=== PATIENT | female | born 1940 | race Caucasian/White ===

== ENCOUNTER 2021-04-22 01:32 | Inpatient (IN) | payer MEDICARE, BC, OTHER, SELFPAY ==
[2021-04-22] VITALS (18 sets, daily range): BP systolic 95–115; BP diastolic 47–75; PULSE 71–102; RESP 16–24; TEMP 35.5–36.4; O2SAT 92–100; BMI 21.7
--- NOTE | ~2021-04-22 | CT_ITS ---
EXAMINATION: CT abdomen pelvis w con DATE: 04/22/2021 02:28 INDICATION: Abdominal pain TECHNIQUE: Computed tomography (CT) of the abdomen and pelvis was performed with 100 cc Omnipaque 350 intravenous contrast. The dose-length product was 707.75 mGy-cm. Automated exposure control and iter ative reconstruction technique were employed. COMPARISON: None. FINDINGS: There is dependent atelectasis. Coarse reticular opacities lower lungs which may also refle ct atelectasis or chronic interstitial lung disease. Cardiomegaly. No significant pleural or pericard ial effusion. Moderate diffuse atherosclerosis. No aneurysm. Thickening of the gastric antrum and duo denum. Moderate free air throughout the abdomen and pelvis. Findings suspicious for ulcer, exact site not identified. Small amount of free fluid in the abdomen and pelvis. Uterus is surgically absent. A ppendix not visualized. Nonobstructive bowel gas pattern. No acute osseous abnormality. Moderate-yaw re lumbar spondylosis. Status post cholecystectomy with expected prominence of the bile ducts. The spleen, pancreas, adrenal glands and kidneys are unremarkable. IMPRESSION: 1. Moderate free intraperitoneal air, suspicious for perforated viscus, possibly perforated duodenal or gastric ulcer. There is marked thickening of the gastric antrum and duodenum. Reviewed, dictated and finalized at location D. IMPRESSION: 1. Moderate free intraperitoneal air, suspicious for perforated viscus, possibl y perforated duodenal or gastric ulcer. There is marked thickening of the gastr ic antrum and duodenum.
--- NOTE | ~2021-04-22 | XR_ITS ---
EXAMINATION: XR abdomen NG/feed tube insert INDICATION: Nasogastric tube insertion TECHNIQUE: Portable AP KUB-NG at 1357 hours COMPARISON: CT from today FINDINGS: The nasogastric tube is in the stomach. There are midline skin rosendo. A surgical drain co ils over the midepigastrium. Cholecystectomy clips are noted. There are patchy airspace opacities of the lungs. IMPRESSION: 1. Nasogastric tube in the stomach. Interval surgical change. Reviewed, dictated and finalized at location A.
--- NOTE | ~2021-04-22 | XR_ITS ---
EXAMINATION: XR abdomen NG/feed tube insert DATE: 04/24/2021 01:53 INDICATION: New nasogastric tube placement. TECHNIQUE: A supine view of the abdomen and lower chest was obtained for evaluation of feeding tube placement. COMPARISON: 04/23/2021 FINDINGS: Nasogastric tube tip in proximal side port in the body of the stomach. Surgical drain position in the right lower quadrant and coiled in the central abdomen. Cholecystectomy clips in right upper quadran t. Midline skin rosendo. Relative paucity of bowel gas in the visualized abdomen. Opacities at the bi lateral lung bases with blunting at the costophrenic angles consistent with small bilateral pleural e ffusions and associated atelectasis and/or pneumonia. Cardiomegaly. IMPRESSION: 1. Nasogastric tube in the stomach with nonspecific relative paucity of bowel gas in the abdomen. 2. Small bilateral pleural effusions with mild bibasilar atelectasis and/or pneumonia. 3. Cardiomegaly. Reviewed, dictated and finalized at location A. IMPRESSION: 1. Nasogastric tube in the stomach with nonspecific relative paucity of bowel g as in the abdomen. 2. Small bilateral pleural effusions with mild bibasilar atelectasis and/or pne umonia. 3. Cardiomegaly.
--- NOTE | ~2021-04-22 | XR_ITS ---
EXAMINATION: XR UGI water soluble wo kub DATE: 04/24/2021 12:09 INDICATION: Patient status post perforated gastric ulcer repair TECHNIQUE: Water-soluble contrast was infused through the nasogastric tube.. Conventional supine abdo men radiographs and fluoroscopy of the stomach and proximal small bowel were performed. Fluoroscopy e xposure time was 0.9 minutes. The DAP for this procedure was 8.50 Gycm2. COMPARISON: CT from 04/22/2021 FINDINGS: There is no hiatal hernia. There was a small amount of gastroesophageal reflux around the n asogastric tube. A surgical drain is present which coils along the lesser curvature of the stomach. N o contrast extravasation is identified. The stomach and proximal small bowel show normal folding hina erns. Cholecystectomy clips are noted. IMPRESSION: 1. Postsurgical changes without evidence of contrast extravasation. Reviewed, dictated and finalized at location A.
--- NOTE | 2021-04-22 01:49 | ECG_ITS ---
Measurements Intervals [place] Rate: 67 P: 37 AR: 180 QRS: 54 QRSD: 82 T: 49 QT: 407 QTc: 431 Interpretive Statements SINUS RHYTHM BASELINE WANDER- V1, V4-V6 NORMAL ECG Electronically Signed On 04-22-2021 6:28:59 CDT by Mariano Wilson D.O.
--- NOTE | 2021-04-22 02:00 | ED.ABDPAIN ---
HPI - Abdominal Pain General Stated Complaint: abd pain/vomiting Time Seen by Provider: 04/22/21 01:52 Source: patient Mode of arrival: ambulatory Limitations: no limitations History of Present Illness HPI narrative: Patient is an 80-year-old female complaining of upper abdominal pain accompanied by nausea vomiting, nonbilious nonbloody that started tonight. Patient states her pain is a 10 out of 10, dull, nonradiating. Patient denies any chest pain, shortness of breath, diarrhea, fever or chills. Related Data Home Medications Medication Instructions Recorded Confirmed albuterol sulfate [ProAir HFA] INHALATION 04/22/21 04/22/21 cetirizine mg 04/22/21 donepezil mg 04/22/21 meloxicam 04/22/21 memantine mg 04/22/21 montelukast mg 04/22/21 quetiapine 04/22/21 sertraline mg 04/22/21 Allergies Allergy/AdvReac Type Severity Reaction Status Date / Time Penicillins Allergy Rash Verified 04/22/21 02:10 Sulfa (Sulfonamide Allergy Rash Verified 04/22/21 02:10 Antibiotics) Review of Systems Review of Systems: All systems reviewed & are unremarkable except as noted in HPI and below Constitutional: Constitutional: Denies body ache(s), Denies chills, Denies excessive sweating, Denies fatigue, Denies fever(s), Denies headache(s), Denies lethargy, Denies malaise, Denies weakness and Denies weight loss Eyes: Eyes: Denies blurry vision, Denies change in vision and Denies loss of vision ENT: Denies dizziness, Denies ear discharge, Denies headache(s), Denies lip swelling, Denies epistaxis, Denies nasal congestion, Denies neck pain, Denies throat swelling and Denies tongue swelling Cardiovascular: Cardiovascular: Denies chest pain, Denies chest pain at rest, Denies chest pain with activity, Denies diaphoresis, Denies rapid heart rate, Denies edema, Denies irregular heart rhythm, Denies lightheadedness, Denies palpitations, Denies dyspnea and Denies dyspnea on exertion Respiratory: Respiratory: Denies chest congestion, Denies cough, Denies hemoptysis, Denies dyspnea and Denies dyspnea on exertion Gastrointestinal: Gastrointestinal: Denies melena, Denies hematochezia, Denies diarrhea and Denies hematemesis Musculoskeletal: Musculoskeletal: Denies abnormal gait, Denies deformity, Denies joint swelling, Denies limited range of motion, Denies neck pain and Denies numbness Neurologic: Denies Abnormal speech present, Denies abnormal gait, Denies confusion, Denies dizziness, Denies headache(s), Denies focal weakness, Denies loss of vision, Denies numbness, Denies Other visual disturbances, Denies Sensory deficit (Neuro) and Denies weakness Psychiatric: Psychiatric: Denies confusion, Denies depression, Denies auditory hallucinations, Denies homicidal ideation and Denies suicidal ideation Endocrine: Endocrine: Denies cold intolerance, Denies excessive sweating, Denies fatigue, Denies heat intolerance and Denies palpitations Hematologic/Lymphatic: Hematologic/Lymphatic: Denies easy bleeding and Denies easy bruising Allergic/Immunologic: Allergic/Immunologic: Denies lip swelling, Denies throat swelling and Denies tongue swelling PMFSH Comments Past medical history: Dementia Family history: Noncontributory Social history: Non-smoker no EtOH use, lives with daughter Exam Const: General: cooperative, healthy appearing, comfortable, no acute distress, well developed, alert and awake; No confusion Orientation/consciousness: oriented to person, oriented to place, oriented to time, patient oriented x3 and No confusion Limitations: no limitations HENMT: Head: normal to inspection, normocephalic and atraumatic Ears: hearing grossly normal bilaterally, TM normal on the right and TM normal on the left General nose exam: Normal external nose present, Normal nares present and No nasal discharge present Face and sinus: normal facial exam Mouth: Yes Normal oral and palatal mucosa present, Yes lip normal, Yes tongue normal and Yes oropharynx nor
[2021-04-22 02:01] LABS: Basophils Absolute Auto 0.1 K/mm3 (0.0-0.1); Basophils Percent Auto 0.6 % (0.2-1.2); Eosinophils Absolute Auto 0.2 K/mm3 (0-0.3); Eosinophils Percent Auto 1.5 % (0-4.4); Hemoglobin 13.8 g/dL (12.0-15.0); Immature Granulocyte Absolute 0.16 K/mm3 (0.00-0.031); Immature Granulocyte Percent A 1.5 % (0-0.5); Lymphocytes Absolute Auto 3.56 K/mm3 (0.9-3.2); Lymphocytes Percent Auto 33.1 % (18.3-44.2); Mean Corpuscular HGB Conc 32.9 g/dl (32-36); Mean Corpuscular Hemoglobin 27.3 pg (26-34); Mean Corpuscular Volume 83.2 fl (80-100); Mean Platelet Volume 9.1 fl (7.4-10.4); Monocytes Absolute Auto 0.9 K/mm3 (0.1-0.6); Monocytes Percent Auto 8.4 % (2.6-8.5); Neutrophils Absolute Auto 5.9 K/mm3 (1.3-6.7); Neutrophils Percent Auto 54.9 % (45.5-73.1); Platelet Count Result 261 k/mm3 (150-375); Red Blood Count 5.05 M/mm3 (4.2-5.4); Red Cell Distribution Width 15.3 % (11.5-14.5); White Blood Count 10.8 K/mm3 (4.5-10.0)
[2021-04-22] MEDS: ONDANSETRON INJ 4 MG/2 ML VIAL IV PUSH ×2 (02:11→20:31)
[2021-04-22] MEDS: PANTOPRAZOLE SODIUM IV 40 MG VIAL IV PUSH ×3 (02:11→20:30)
[2021-04-22] MEDS: LACTATED RINGERS 1,000 ML 999 ML IV CONT (02:11)
[2021-04-22 02:12] LABS: Alanine Aminotransferase 13 U/L (4-35); Albumin Level 4.3 g/dL (3.5-5.1); Alkaline Phosphatase 68 U/L (38-126); Anion Gap 10 mmol/L (8-16); Aspartate Amino Transferase 26 U/L (14-36); Bilirubin,Total 0.3 mg/dL (0.2-1.3); Blood Urea Nitrogen 18 mg/dL (7-17); Calcium 9.7 mg/dL (8.4-10.2); Carbon Dioxide 25 mmol/L (22-30); Chloride 104 mmol/L (98-107); Estimated Glomerular Filt Rate 53; Glucose 157 mg/dL (65-105); Potassium 3.7 mmol/L (3.4-5.0); Sodium 139 mmol/L (137-145)
[2021-04-22] MEDS: HYDROmorphone HCL INJ (*CRX) 1 MG/ML SYR 0.5 MG IV PUSH (02:12)
[2021-04-22 03:34] LABS: Add Urine Microscopic? YES; Appearance Urine Clear (Clear); Bilirubin Urine Negative (Negative); Color Urine Yellow (Yellow); Glucose Urine UA Negative (Negative); Ketones Urine 1+ mg/dL (Negative); Leukocyte Esterase Ur Trace LEU/UL (Negative); Nitrate Urine Negative (Negative); Protein Urine Negative (Negative); Squamous Epithelial Cell Urine Few /hpf (Few); Urobilinogen Urine Negative mg/dL (<2.0)
[2021-04-22] MEDS: metroNIDAZOLE 500 MG/ISO 100ML 500 MG/100 ML BAG 100 MG IVPB ×4 (03:42→20:30)
[2021-04-22 03:43] LABS: Blood Urine Negative (Negative); Specific Grav Ur > 1.060 (1.001-1.035)
--- NOTE | 2021-04-22 04:17 | WPDANESEPPF ---
Anes - Initial Pre Proc Eval Procedure: Operation Date: 04/22/21 05:00 Proposed Procedures p Exploratory Laparotomy, Pos Bowel Resec - Jareth Green DO Date/Time: 04/22/21 04:17 Pre Op Diagnosis: abd pain/vomiting Patient Data Age: 80 Gender: F Height: Weight: Last Vital Signs Temp 36.3 C L 04/22/21 03:40 Pulse 71 04/22/21 03:40 Resp 16 04/22/21 03:40 BP 102/70 04/22/21 03:40 Pulse Ox 100 04/22/21 03:40 Allergies Allergy/AdvReac Type Severity Reaction Status Date / Time Penicillins Allergy Rash Verified 04/22/21 02:10 Sulfa (Sulfonamide Allergy Rash Verified 04/22/21 02:10 Antibiotics) Home Medications Medication Instructions Recorded Confirmed Type albuterol sulfate [ProAir HFA] INHALATION 04/22/21 04/22/21 History cetirizine mg 04/22/21 History donepezil mg 04/22/21 History meloxicam 04/22/21 History memantine mg 04/22/21 History montelukast mg 04/22/21 History quetiapine 04/22/21 History sertraline mg 04/22/21 History Laboratory Tests 04/22/21 04/22/21 04/22/21 01:55 01:55 02:51 WBC 10.8 K/mm3 H K/mm3 (4.5-10.0) RBC 5.05 M/mm3 M/mm3 (4.2-5.4) Hgb 13.8 g/dL g/dL (12.0-15.0) Hct 42.0 % % (37.0-47.0) MCV 83.2 fl fl (80-100) MCH 27.3 pg pg (26-34) MCHC 32.9 g/dl g/dl (32-36) RDW 15.3 % H % (11.5-14.5) Plt Count 261 k/mm3 k/mm3 (150-375) MPV 9.1 fl fl (7.4-10.4) Immature Gran % (Auto) 1.5 % H % (0-0.5) Neut % (Auto) 54.9 % % (45.5-73.1) Lymph % (Auto) 33.1 % % (18.3-44.2) [place] % (Auto) 8.4 % % (2.6-8.5) Eos % (Auto) 1.5 % % (0-4.4) Baso % (Auto) 0.6 % % (0.2-1.2) Lymph # (Auto) 3.56 K/mm3 H K/mm3 (0.9-3.2) [place] # (Auto) 0.9 K/mm3 H K/mm3 (0.1-0.6) Eos # (Auto) 0.2 K/mm3 K/mm3 (0-0.3) Baso # (Auto) 0.1 K/mm3 K/mm3 (0.0-0.1) Abs Immat Gran (auto) 0.16 K/mm3 H K/mm3 (0.00-0.031) Absolute Neuts (auto) 5.9 K/mm3 K/mm3 (1.3-6.7) Absolute Nucleated RBC 0.0 K/mm3 K/mm3 (0.0-0.012) Nucleated RBC % 0.0 % % (0.0-0.2) Sodium 139 mmol/L mmol/L (137-145) Potassium 3.7 mmol/L mmol/L (3.4-5.0) Chloride 104 mmol/L mmol/L (98-107) Carbon Dioxide 25 mmol/L mmol/L (22-30) Anion Gap 10 mmol/L mmol/L (8-16) BUN 18 mg/dL H mg/dL (7-17) Creatinine 1.00 mg/dL mg/dL (0.7-1.0) Estim Creat Clear Calc Not Reportable Estimated GFR 53 L (59 - ) Glucose 157 mg/dL H mg/dL (65-105) Calcium 9.7 mg/dL mg/dL (8.4-10.2) Total Bilirubin 0.3 mg/dL mg/dL (0.2-1.3) AST 26 U/L U/L (14-36) ALT 13 U/L U/L (4-35) Alkaline Phosphatase 68 U/L U/L (38-126) Total Protein 7.0 g/dL g/dL (6.3-8.2) Albumin 4.3 g/dL g/dL (3.5-5.1) Urine Color Yellow (Yellow) Urine Appearance Clear (Clear) Urine pH 5.0 (5.0-9.0) Ur Specific [place] > 1.060 H (1.001-1.035) Urine Protein Negative mg/dL mg/dL (Negative) Urine Glucose (UA) Negative mg/dL mg/dL (Negative) Urine Ketones 1+ mg/dL H mg/dL (Negative) Ur Blood (Man) Negative (Negative) Urine Nitrate Negative (Negative) Urine Bilirubin Negative (Negative) Urine Urobilinogen Negative mg/dL mg/dL (<2.0) Leukocyte Esterase Rfl Trace DUANE/UL H DUANE/UL (Negative) Urine RBC 6-10 /hpf H /hpf (0-2) Urine WBC 7-9 /hpf H /hpf Ur Squamous Epith Cells Few /hpf /hpf (Few) Patient hx anesthesia problems: none Family hx anesthesia problems: none [facility] Past Medical History Medical History (Updated 04/22/21 @ 04:18 by
--- NOTE | 2021-04-22 04:41 | WPDHPUPDATE1 ---
History and Physical Update Update Date/Time: 04/22/21 04:41 History and Physical has been reviewed, including an updated exam of the patient. There are NO changes in the patient's condition. Risks, benefits, and alternatives have been discussed and questions answered. Patient agrees to proceed with procedure.
--- NOTE | 2021-04-22 04:41 | PM.IMHP ---
H&P: HPI History of Present Illness Date/Time: 04/22/21 04:41 Chief Complaint: Abdominal pain Narrative: This is an 80-year-old woman who presented to the emergency department with acute abdominal pain. She has been having nausea and vomiting. Over the past several days she has not been able to eat much leading up to this. She denies any change in bowel habits and denies any blood in her stool. She has had colonoscopies in the past. Her daughter reports that she did have a history of GI bleed a long time ago when put on blood thinners. She has not had any problems like this in a long time. Review of Systems Review of Systems: All systems reviewed & are unremarkable except as noted in HPI and below Constitutional: Constitutional: Denies chills and Denies fever(s) Cardiovascular: Cardiovascular: Denies chest pain and Denies dyspnea Respiratory: Respiratory: Denies dyspnea Gastrointestinal: Gastrointestinal: Reports as per HPI [facility] Past Medical History Medical History Asthma Dementia Surgical History Surgical History History of appendectomy History of cholecystectomy History of hysterectomy Family History Family History Other No pertinent family history Social History Social History Smoking status: Never smoker Alcohol intake: never Substance use: never Living arrangements: with family Additional living arrangements comments: Lives at home with daughter Meds Home Medications and Allergies Home Medications Medication Instructions Recorded Confirmed Type albuterol sulfate [ProAir HFA] INHALATION 04/22/21 04/22/21 History cetirizine mg 04/22/21 History donepezil mg 04/22/21 History meloxicam 04/22/21 History memantine mg 04/22/21 History montelukast mg 04/22/21 History quetiapine 04/22/21 History sertraline mg 04/22/21 History Allergies Allergy/AdvReac Type Severity Reaction Status Date / Time Penicillins Allergy Rash Verified 04/22/21 02:10 Sulfa (Sulfonamide Allergy Rash Verified 04/22/21 02:10 Antibiotics) Vital Signs Vital Signs - 24 hr 04/22/21 03:40 04/22/21 04:29 Temperature 36.3 C L Pulse Rate 71 71 Respiratory Rate 16 16 Blood Pressure 102/70 105/52 L Pulse Oximetry 100 100 Exam Const: General: cooperative and no acute distress Nutritional Appearance: average body habitus Orientation/consciousness: patient oriented x3 HENMT: Head: normal to inspection Ears: hearing grossly normal bilaterally Mouth: Yes Normal oral and palatal mucosa present Eyes: General: appearance normal, both eyes and all related structures Sclera: sclerae normal EOM: EOMs intact bilaterally Neck: Neck: normal visual inspection and full ROM Resp: Effort & Inspection: normal respiratory effort and able to speak in complete sentences Cardio: Jugular venous distension: no JVD Rate: regular rate Rhythm: regular rhythm Heart sounds: S1 normal heart sound present and S2 normal heart sound present GI: Inspection: non-distended GI Palp: Yes Soft to palpation, Yes Tenderness to palpation present (GI) (Epigastric) and Yes Guarding due to palpation present (GI) Auscultation: Hypoactive bowel sounds present Back/Spine/Pelvis: Cervical Spine: normal cervical lordosis and cervical ROM normal Skin: General skin exam: normal color and no rashes or lesions noted Neuro: General: patient oriented x3, moves all extremities, no focal motor deficits and CN's II-XI intact bilaterally Speech: normal speech Extrem: General: normal to inspection, full ROM and no clubbing, cyanosis or edema Psych: Appearance: grossly normal Mental Status: mental status grossly normal Speech and movement: Normal speech and movement present Affect: normal affect Attitude
[2021-04-22] MEDS: LACTATED RINGERS 1,000 ML 30 ML IV CONT (06:15)
[2021-04-22] MEDS: fentaNYL CITRATE INJ (*CRX) 100 MCG/2 ML VIAL 25 MCG IV PUSH ×6 (06:28→07:40)
--- NOTE | 2021-04-22 06:28 | W.PM.PROC2 ---
Procedure Note - Detailed Date of Procedure 04/22/21 Pre-op Diagnosis Acute abdominal pain, perforated viscus Post-op Diagnosis other (Perforated gastric ulcer) Procedure Performed 1. Exploratory laparotomy 2. Repair of perforated gastric ulcer with omental Jaison patch 3. Biopsy of gastric ulcer Surgeon Jareth Green, Anesthesia general Indications This is an 80-year-old woman who presented to the emergency department with severe abdominal pain. She was found peritoneal signs CT showed evidence free air with likely perforated viscus. She was hemodynamically stable in the emergency department. Broad-spectrum IV antibiotics were started. Decision was made to proceed with emergency exploratory laparotomy. Findings Exploratory laparotomy was performed. A perforated gastric ulcer was identified along the lesser curvature in the antrum. The perforation measured about 1 cm in size. There was thickening of the gastric wall around this area. Several biopsies were taken along the ulcer edge for pathology. The ulcer was repaired using 0 Vicryl simple interrupted sutures a Jaison patch was performed using omentum to silk simple interrupted sutures. There was a moderate amount of gastric contents found throughout the abdominal cavity. Abdomen was irrigated with 2 L of sterile saline and a 19 round Lenoel drain was placed the right upper quadrant and oriented anterior surface the repair. Description of Procedure Procedure as well as risks, benefits, and alternatives were discussed with the patient. Written consent was obtained and placed in chart prior to procedure. Patient was brought back to surgical suite. She was intubated by the Anesthesia Department. Her abdomen was prepped and draped in sterile fashion using chlorhexidine prep. A 10 cm vertical midline incision was made in the upper abdomen using a 10 blade scalpel. Electrocautery was used for hemostasis and for dissection down to the midline linea alba. Linea alba was then incised using electrocautery and the peritoneum was entered using electrocautery as well. Rl wound protector was placed and then the abdominal cavity was carefully inspected. Gastric fluid was identified in the upper abdomen and along the undersurface of the liver. The body of the stomach was carefully identified and a perforation was visualized the lesser curvature in the antrum stomach. The gastric fluid was suctioned. Curved Metzenbaum scissors were used to take several small biopsies of the ulcer bed and these were sent to the lab for pathology. The ulcer was then repaired using 0 Vicryl simple interrupted sutures. A portion of the omentum was identified that would come up over the ulcer without any tension. The omentum was secured around the ulcer using 2 0 silk simple interrupted sutures. This appeared to patch over the ulcer with adequate coverage. The abdominal cavity was then irrigated with 2 L of sterile saline. No other abnormalities were noted. NG tube was placed by anesthesia and positioning was confirmed in the body of the stomach. A small willy incision was made in the right upper quadrant using a 15 blade scalpel. A curved clamp was then used to pass a 19 round Leonel drain into the cavity. Drain was secured place using a 3 0 nylon drain stitch and the drain was positioned directly over the ulcer repair. One final inspection was made around the abdominal cavity and no other abnormalities were noted. The Rl wound protector was removed and the midline fascia was closed using 0 PDS running suture starting from each end and meeting in the middle. The subcutaneous space was irrigated with sterile saline. Skin edges were then reapproximated using a skin stapler. Telfa 4 x 4 gauze Medipore tape were applied as was a drain sponge and tape. Estimated Blood Loss -20.0 Urine Output -225.0 Drains Yes (19 round Leonel) Pathology yes (Gastric ulcer biopsies) Complications No immediate complications Conditi
[2021-04-22] MEDS: MORPHINE SULFATE (*CRX) 4 MG/ML INJ IV PUSH ×3 (08:30→20:31)
[2021-04-22] MEDS: ENOXAPARIN 40 MG/0.4 ML SYRINGE SUB-Q (10:12)
--- NOTE | 2021-04-22 15:40 | PM.IMCN ---
Assessment and Plan Assessment and plan (1) Perforated abdominal viscus: Code(s): R19.8 - Other specified symptoms and signs involving the digestive system and abdomen Status: Acute Assessment and Plan: See operative note.. Exploratory laparotomy 2. Repair of perforated gastric ulcer with omental Jaison patch 3. Biopsy of gastric ulcer Postop care per surgery. DVT prophylaxis per surgery. Looks like the patient is on subcu Lovenox. Pain management and antibiotics per surgery. (2) Dementia: Code(s): F03.90 - Unspecified dementia without behavioral disturbance Status: Chronic Assessment and Plan: Continue with home medications when she no longer has NG tube and it is okay with surgery for her to eat. At this time she is NPO and has an NG tube. (3) Asthma: Code(s): J45.909 - Unspecified asthma, uncomplicated Status: Chronic Assessment and Plan: Continue with inhaler HPI Data of Consult Consult date: 04/22/21 Requesting Physician: Jareth rGeen DO Primary Care Provider: Yuliana Rosales, FINANCIAL ASSOCIATE Consult Narrative Narrative: Madina Roy Meng is a 80 year old female this is a 80-year-old female patient who resides with her daughter. To the emergency room was complaining of upper abdominal pain. This pain developed over the last several days and was not able to eat much. The patient was rating her pain 10/10 when she came in today. She did not have any change in bowel habits and has had colonoscopies in the past. Patient had non bloody non bilious vomiting that started last night. She has not been on any blood thinners. She did have a GI bleed in the past due to the blood thinners and was taken off of them and has not had a problem since then until today. Her CT of the abdomen and pelvis was read as moderate free intraperitoneal air, suspicious for perforated viscus possiblely perforated duodenal or gastric ulcer. There is marked thickening of the gastric antrum and duodenum. Surgery has been called and was consulted. The patient was seen by surgery and taken to surgery from the emergency. See operative report. Procedure performed expiratory laparotomy, repair of perforated gastric ulcer with omental Jaison patch and biopsy of gastric ulcer.. When I saw the patient she was just complaining of a sore throat. Her dressing was dry intact mid abdomen with an ice pack on it and the REG drain was intact as well. Patient is being admitted to inpatient services. The hospitalist group is the consult on the date of service of 04/22/2021. Review of Systems Constitutional: Constitutional: Reports as per HPI and Reports no additional constitutional complaints Eyes: Eyes: Reports as per HPI and Reports no additional eye complaints ENT: Reports system reviewed and no additional complaints, except as documented and Reports Normal hearing present Cardiovascular: Cardiovascular: Reports no additional cardiovascular complaints Respiratory: Respiratory: Reports as per HPI and Reports no additional respiratory complaints Gastrointestinal: Gastrointestinal: Reports as per HPI and Reports no additional gastrointestinal complaints Genitourinary: Genitourinary: Reports no additional female genitourinary complaints Musculoskeletal: Musculoskeletal: Reports no additional musculoskeletal complaints Integumentary/Breasts: Skin/Breast: Reports system reviewed and no additional complaints, except as docu Neurologic: Reports system reviewed and no additional complaints, except as documented and Reports Normal hearing present Psychiatric: Psychiatric: Reports no additional psychiatric complaints and Reports as per HPI Hematologic/Lymphatic: Hematologic/Lymphatic: Reports no additional hematologic/lymphatic complaints Allergic/Immunologic: Allergic/Immunologic: Reports no additional allergic/immunologic complaints [facility] Past Medical History Medical History (Updated 04/22/21 @ 16:01 by Casandra Swenson
--- NOTE | 2021-04-22 19:28 | ADMGEN ---
This patient, Madina Roy Meng, was admitted to [facility] Surg Room 311-01. Patient/family oriented to hospital policies and general routines including ID bracelet, bed and alarms, visiting hours, pain management, procedures, bathroom and other care routines, personal items, smoking policy, room service/diet, and visiting hours. Information on how to activate the Rapid Response Team has been discussed. Patient/Family are encouraged to report perceived risks to care and to ask questions if they do not understand what they are told or what they should do.
[2021-04-23] MEDS: metroNIDAZOLE 500 MG/ISO 100ML 500 MG/100 ML BAG 100 MG IVPB ×4 (03:56→20:56)
[2021-04-23 06:00] VITALS: BP 100/50; PULSE 85; RESP 18; TEMP 36.9; O2SAT 98
[2021-04-23 06:25] LABS: Hematocrit 35.8 % (37.0-47.0); Hemoglobin 11.7 g/dL (12.0-15.0); Mean Corpuscular HGB Conc 32.7 g/dl (32-36); Mean Corpuscular Hemoglobin 26.8 pg (26-34); Mean Corpuscular Volume 81.9 fl (80-100); Mean Platelet Volume 9.8 fl (7.4-10.4); Platelet Count Result 207 k/mm3 (150-375); Red Blood Count 4.37 M/mm3 (4.2-5.4); Red Cell Distribution Width 15.6 % (11.5-14.5)
[2021-04-23 06:41] LABS: Anion Gap 5 mmol/L (8-16); Blood Urea Nitrogen 16 mg/dL (7-17); Calcium 8.6 mg/dL (8.4-10.2); Carbon Dioxide 28 mmol/L (22-30); Chloride 105 mmol/L (98-107); Estimated CRCL calculation 35 ml/min; Estimated Glomerular Filt Rate 60; Glucose 114 mg/dL (65-105); Magnesium 1.8 mg/dL (1.6-2.3); Potassium 4.1 mmol/L (3.4-5.0); Sodium 138 mmol/L (137-145)
[2021-04-23] MEDS: PHENOL/SOD PHENO SPRAY CHERRY (*BKC) 1 SPRAY MUCOUS MEM (09:29)
[2021-04-23] MEDS: ENOXAPARIN 40 MG/0.4 ML SYRINGE SUB-Q (09:30)
[2021-04-23] MEDS: PANTOPRAZOLE SODIUM IV 40 MG VIAL IV PUSH ×2 (09:30→21:10)
[2021-04-23 09:40] VITALS: O2SAT 97
--- NOTE | 2021-04-23 10:14 | WPDANESPN ---
Anes - Prog Note Post-Op Date/Time: 04/23/21 10:14 Cardiovascular status: normal Respiratory status: normal Airway patency: baseline Mental status: baseline Post-Op hydration status: normal Vital Signs: Last Vital Signs Temp 36.9 C 04/23/21 06:00 Pulse 85 04/23/21 06:00 Resp 18 04/23/21 06:00 BP 100/50 L 04/23/21 06:00 Pulse Ox 97 04/23/21 09:40 Pain Score (VAS): 0/10. Patient resting in bed at time of assessment, appears comfortable. I/O: Intake & Output 04/22/21 04/23/21 04/23/21 23:59 07:59 15:59 Intake Total 800 200 Output Total 330 620 20 Balance 470 -420 -20 Laboratory Tests 04/23/21 05:51 04/23/21 05:52 04/23/21 04/23/21 04/23/21 05:51 05:51 05:52 WBC 13.0 H RBC 4.37 Hgb 11.7 L Hct 35.8 L MCV 81.9 MCH 26.8 MCHC 32.7 RDW 15.6 H Plt Count 207 MPV 9.8 Sodium 138 Potassium 4.1 Chloride 105 Carbon Dioxide 28 Anion Gap 5 L BUN 16 Creatinine 0.90 Estim Creat Clear Calc 35 Estimated GFR 60 Glucose 114 H Calcium 8.6 Magnesium 1.8 TSH (Reflex) 2.270 Post-procedural complaints: none Patient Feedback: Patient satisfied with anesthetic care.
--- NOTE | 2021-04-23 10:21 | PM.PNGS ---
Progress Note: A&P Assessment and Plan (1) Perforated abdominal viscus: Code(s): R19.8 - Other specified symptoms and signs involving the digestive system and abdomen Status: Acute Assessment and Plan: POD#1 and doing well. Monitor REG drain output. Continue NG tube decompression and NPO/IV fluids. Will consider Gastrografin upper GI in the next 1-2 days prior to initiating a diet. Continue IV antibiotics and IV Protonix BID Encouraged increasing activity, up to chair, and IS use. Will add PT/OT. Additional Plan I have discussed the plan of care with Dr. Green. Subjective Subjective Date/Time Seen: 04/23/21 10:21 Post Op day: 1 (Exploratory laparotomy, repair of perforated gastric ulcer, bx of gastric ulcer) Patient reports: no new complaints, no flatus, no bowel movement and afebrile Interval history: Patient seen today with some epigastric abdominal pain that is currently controlled. No flatus. NG in place with 350 cc recorded output overnight. No other complaints at this time. Review of Systems Review of Systems: All systems reviewed & are unremarkable except as noted in HPI and below Constitutional: Constitutional: Reports as per HPI, Reports no additional constitutional complaints, Denies chills and Denies fever(s) Cardiovascular: Cardiovascular: Reports no additional cardiovascular complaints, Denies chest pain, Denies leg edema and Denies dyspnea Respiratory: Respiratory: Reports no additional respiratory complaints, Denies cough and Denies dyspnea Gastrointestinal: Gastrointestinal: Reports as per HPI and Reports no additional gastrointestinal complaints Neurologic: Reports system reviewed and no additional complaints, except as documented, Denies Abnormal speech present and Denies focal weakness Exam Const: General: comfortable, no acute distress, alert and awake Orientation/consciousness: patient oriented x3 and confusion (hx dementia with poor memory) Resp: Effort & Inspection: normal respiratory effort Auscultation: clear to auscultation bilaterally Cardio: Rate: regular rate Rhythm: regular rhythm GI: Inspection: non-distended, incision (Midline dressing clean and dry) and other (REG drain with minimal serosanguineous drainage) GI Palp: Yes Soft to palpation, Yes Tenderness to palpation present (GI) (appropriate post-op tenderness) and No Guarding due to palpation present (GI) Auscultation: absent bowel sounds Urinary Catheter: Urinary Catheter: patent and draining and urine clear Skin: General skin exam: normal color Neuro: General: moves all extremities and no focal motor deficits Extrem: General: no clubbing, cyanosis or edema and no calf tenderness Psych: Mental Status: mental status grossly normal Insight: Fair insight present (Psych) Judgement: Fair judgement present (Psych) Objective Data Vital Signs Vital Signs: Vital Signs - 24 hr 04/22/21 11:22 04/22/21 13:41 04/22/21 17:41 Temperature 95.9 F L 97.4 F L Pulse Rate 96 89 89 Respiratory Rate 20 20 24 H Blood Pressure 110/51 L 110/49 L Pulse Oximetry 96 96 97 04/22/21 20:00 04/22/21 21:55 04/23/21 06:00 Temperature 97.5 F L 98.5 F Pulse Rate 93 85 Respiratory Rate 17 18 Blood Pressure 107/75 100/50 L Pulse Oximetry 98 98 98 04/23/21 09:40 Temperature Pulse Rate Respiratory Rate Blood Pressure Pulse Oximetry 97 Intake/Output Intake/Output: Intake & Output 04/20/21 04/21/21 04/22/21 04/23/21 23:59 23:59 23:59 23:59 Intake Total 2750 200 Output Total 470 640 Balance 2280 -440 Meds/Results Medications: Active Medications Generic Name Dose Route Start Last Admin Trade Name Freq PRN Reason Stop Dose Admin Albuterol 2 puff 04/22/21 16:03 Albuterol Sulfate (*Sp) Aerosol 1 Puff INHALATION Q6HRT PRN Shortness Of Breath Enoxaparin Sodium 40 mg 04/22/21 09:00 04/23/21 09:30 Enoxaparin 40 Mg/0.4 Ml Syringe SUB-Q 40 mg DAILY [facility] Administrat
[2021-04-23] MEDS: LACTATED RINGERS 1,000 ML 125 ML IV CONT (11:20)
[2021-04-23 14:00] VITALS: BP 112/53; PULSE 88; RESP 18; TEMP 37; O2SAT 93
[2021-04-23] MEDS: MORPHINE SULFATE (*CRX) 2 MG/ML INJ IV PUSH ×2 (15:28→22:55)
--- NOTE | 2021-04-23 17:17 | PM.IMPN ---
Progress Note: A&P Assessment and Plan (1) Perforated abdominal viscus: Code(s): R19.8 - Other specified symptoms and signs involving the digestive system and abdomen Status: Acute Assessment and Plan: See operative note.. Exploratory laparotomy 2. Repair of perforated gastric ulcer with omental Jaison patch 3. Biopsy of gastric ulcer Postop care per surgery. DVT prophylaxis per surgery. Looks like the patient is on subcu Lovenox. Pain management and antibiotics per surgery. 04/23 Patient with a perforated gastric ulcer status post surgical repair postop day number 1, patient states her abdominal pain is better compared to when she arrived, patient on NG tube, and has REG drain seen by surgical service patient is NPO will continue decompress and monitor, surgical service further recommendation to follow. (2) Dementia: Code(s): F03.90 - Unspecified dementia without behavioral disturbance Status: Chronic Assessment and Plan: Continue with home medications when she no longer has NG tube and it is okay with surgery for her to eat. At this time she is NPO and has an NG tube. (3) Asthma: Code(s): J45.909 - Unspecified asthma, uncomplicated Status: Chronic Assessment and Plan: Continue with inhaler Subjective Date/time seen: 04/23/21 17:17 Patient with a perforated gastric ulcer status post surgical repair postop day number 1, patient states her abdominal pain is better compared to when she arrived, patient on NG tube, and has REG drain seen by surgical service patient is NPO will continue decompress and monitor, surgical service further recommendation to follow. Review of Systems Constitutional: Constitutional: Reports as per HPI and Reports no additional constitutional complaints Exam Narrative: Exam Narrative: Elderly frail Patient is comfortable, NAD HEENT: eyes are clear and none icteric NG tube in place LUNGS:CTA HEART: RR S1S2 ABD: Bowel sounds faint diffusely tender Lower extremities: no edema SKIN: nonjaundiced Neuro: grossly intact. Objective Data Vital Signs Vital Signs: Vital Signs - 24 hr 04/22/21 17:41 04/22/21 20:00 04/22/21 21:55 Temperature 97.4 F L 97.5 F L Pulse Rate 89 93 Respiratory Rate 24 H 17 Blood Pressure 110/49 L 107/75 Pulse Oximetry 97 98 98 04/23/21 06:00 04/23/21 09:40 04/23/21 14:00 Temperature 98.5 F 98.6 F Pulse Rate 85 88 Respiratory Rate 18 18 Blood Pressure 100/50 L 112/53 L Pulse Oximetry 98 97 93 Intake/Output Intake/Output: Intake & Output 04/20/21 04/21/21 04/22/21 04/23/21 23:59 23:59 23:59 23:59 Intake Total 2750 400 Output Total 470 640 Balance 2280 -240 Meds/Results Medications: Active Medications Generic Name Dose Route Start Last Admin Trade Name Freq PRN Reason Stop Dose Admin Albuterol 2 puff 04/22/21 16:03 Albuterol Sulfate (*Sp) Aerosol 1 Puff INHALATION Q6HRT PRN Shortness Of Breath Enoxaparin Sodium 40 mg 04/22/21 09:00 04/23/21 09:30 Enoxaparin 40 Mg/0.4 Ml Syringe SUB-Q 40 mg DAILY JEWEL Administration Levofloxacin/Dextrose 750 mg in 150 mls @ 100 mls/hr 04/24/21 10:00 Levaquin 750 Mg/D5w 150 Ml IVPB Q48H JEWEL Metronidazole 500 mg in 100 mls @ 100 mls/hr 04/22/21 09:00 04/23/21 14:27 Flagyl 500 Mg/Iso Soln 100 Ml IVPB 100 mls/hr Q6H JEWEL Administration Lactated Ringer's 1,000 mls @ 125 mls/hr 04/23/21 11:11 04/23/21 11:20 Lr - Lactated Ringers Iv IV CONT 04/23/21 19:10 125 mls/hr .Q8H STA Administration Acetaminophen 1,000 mg in 100 mls @ 400 mls/hr 04/23/21 12:00 04/23/21 12:11 Ofirmev 1,000 Mg Ivpb IVPB 04/24/21 12:01 Infused Q6HR PRN Infusion Pain 1-3 Morphine Sulfate 2 mg 04/22/21 07:56 04/23/21 15:28 Morphine Sulfate (*Crx) 2 Mg/Ml Inj IV PUSH 2 mg Q2H PRN Administration Pain Rated 4-6 Morphine Sulfate 4 mg 04/22/21 07:56 04/22/21 20:31 Morphine Sulfate (*Crx)
[2021-04-23] MEDS: MORPHINE SULFATE (*CRX) 4 MG/ML INJ IV PUSH ×2 (18:32→21:10)
[2021-04-23 22:44] VITALS: BP 110/44; PULSE 103; RESP 18; TEMP 36.8; O2SAT 92
[2021-04-24] MEDS: MORPHINE SULFATE (*CRX) 4 MG/ML INJ IV PUSH (01:37)
[2021-04-24 02:00] VITALS: BP 112/65; PULSE 88; RESP 20; TEMP 36.2; O2SAT 99
[2021-04-24] MEDS: metroNIDAZOLE 500 MG/ISO 100ML 500 MG/100 ML BAG 100 MG IVPB ×4 (03:48→21:42)
[2021-04-24 06:00] VITALS: BP 128/48; PULSE 105; RESP 20; TEMP 37.2; O2SAT 95
[2021-04-24 06:30] LABS: Hematocrit 35.2 % (37.0-47.0); Hemoglobin 11.7 g/dL (12.0-15.0); Mean Corpuscular HGB Conc 33.2 g/dl (32-36); Mean Corpuscular Volume 81.3 fl (80-100); Mean Platelet Volume 10.1 fl (7.4-10.4); Platelet Count Result 238 k/mm3 (150-375); Red Blood Count 4.33 M/mm3 (4.2-5.4); Red Cell Distribution Width 15.5 % (11.5-14.5); White Blood Count 13.4 K/mm3 (4.5-10.0)
[2021-04-24 06:44] LABS: Anion Gap 6 mmol/L (8-16); Blood Urea Nitrogen 13 mg/dL (7-17); Calcium 8.3 mg/dL (8.4-10.2); Carbon Dioxide 26 mmol/L (22-30); Chloride 106 mmol/L (98-107); Estimated CRCL calculation 44 ml/min; Estimated Glomerular Filt Rate > 60; Glucose 90 mg/dL (65-105); Potassium 3.7 mmol/L (3.4-5.0); Sodium 138 mmol/L (137-145)
[2021-04-24 08:00] VITALS: O2SAT 95
[2021-04-24 08:34] LABS: Glucose Point of Care 101 mg/dl (65-105)
[2021-04-24] MEDS: LACTATED RINGERS 1,000 ML 125 ML IV CONT ×2 (08:42→21:41)
[2021-04-24] MEDS: PANTOPRAZOLE SODIUM IV 40 MG VIAL IV PUSH ×2 (08:45→21:42)
[2021-04-24] MEDS: ENOXAPARIN 40 MG/0.4 ML SYRINGE SUB-Q (08:45)
--- NOTE | 2021-04-24 10:02 | PM.PNGS ---
Progress Note: A&P Assessment and Plan (1) Perforated abdominal viscus: Code(s): R19.8 - Other specified symptoms and signs involving the digestive system and abdomen Status: Acute Assessment and Plan: Will get a Gastrografin upper GI today. Continue NG tube and NPO until getting these results. Not sure why the IV fluids were again discontinued. Re-ordered continuous fluids until she is tolerating a diet. Monitor REG drain to bulb suction. Continue broad-spectrum IV abx. Continue IV Protonix BID. Encouraged increasing activity and IS use. PT following. Additional Plan I have discussed the plan of care with Dr. Green. Subjective Subjective Date/Time Seen: 04/24/21 09:45 Post Op day: 2 (Ex lap, repair of perforated gastric ulcer, bx of gastric ulcer) Patient reports: flatus and afebrile Interval history: Patient seen this morning and reports feeling tired. She is not having much, if any, incisional pain today. She cannot recall how she did with getting up to the chair and activity yesterday due to her memory loss. Reports flatus this morning. No other complaints at this time. Per the nurse, there have not been IV fluids running through the night and they are unsure how the continuous IV fluid order was discontinued. I re-ordered IV fluids earlier this morning once seeing this was discontinued. Review of Systems Review of Systems: All systems reviewed & are unremarkable except as noted in HPI and below Constitutional: Constitutional: Reports as per HPI, Reports no additional constitutional complaints, Denies chills and Denies fever(s) Cardiovascular: Cardiovascular: Reports no additional cardiovascular complaints and Denies chest pain Respiratory: Respiratory: Reports no additional respiratory complaints, Denies cough and Denies dyspnea Gastrointestinal: Gastrointestinal: Reports as per HPI and Reports no additional gastrointestinal complaints Exam Const: General: comfortable, no acute distress, alert and awake Orientation/consciousness: patient oriented x3 Resp: Effort & Inspection: normal respiratory effort Auscultation: clear to auscultation bilaterally Cardio: Rate: regular rate Rhythm: regular rhythm GI: Inspection: non-distended, incision (Abdominal incision clean and dry, rosendo intact) and other (REG drain with minimal serosanguineous output) GI Palp: Yes Soft to palpation, Yes Tenderness to palpation present (GI) (incisional) and Yes Guarding due to palpation present (GI) Auscultation: Hypoactive bowel sounds present Skin: General skin exam: normal color Neuro: General: moves all extremities and no focal motor deficits Extrem: General: no calf tenderness and edema bilateral (mild susan lower leg non-pitting edema) Psych: Mental Status: mental status grossly normal Judgement: Limited judgement present (Psych) Objective Data Vital Signs Vital Signs: Vital Signs - 24 hr 04/23/21 14:00 04/23/21 22:44 04/24/21 06:00 Temperature 98.6 F 98.3 F 99.0 F Pulse Rate 88 103 H 105 H Respiratory Rate 18 18 20 Blood Pressure 112/53 L 110/44 L 128/48 L Pulse Oximetry 93 92 95 04/24/21 08:00 Temperature Pulse Rate Respiratory Rate Blood Pressure Pulse Oximetry 95 Intake/Output Intake/Output: Intake & Output 04/21/21 04/22/21 04/23/21 04/24/21 23:59 23:59 23:59 23:59 Intake Total 2750 600 100 Output Total 470 2020 515 Balance 8151 -1451 -416 Meds/Results Medications: Active Medications Generic Name Dose Route Start Last Admin Trade Name Freq PRN Reason Stop Dose Admin Albuterol 2 puff 04/24/21 07:58 Albuterol Sulfate (*Sp) Aerosol 1 Puff INHALATION QID PRN shortness of breath Docusate Sodium 100 mg 04/24/21 09:00 Docusate Sodium 100 Mg Capsule PO DAILY JEWEL Donepezil HCl 10 mg 04/24/21 21:00 Donepezil Hcl 10 Mg Tablet PO HS [facility] Enoxaparin Sodium 40 mg 04/22/21 09:00 04/24/21 08:45 Enoxaparin 40 Mg/0.4 Ml Syri
--- NOTE | 2021-04-24 11:41 | PC.NURSE ---
to xray per stretcher
--- NOTE | 2021-04-24 13:40 | PM.IMPN ---
Progress Note: A&P Assessment and Plan (1) Perforated abdominal viscus: Code(s): R19.8 - Other specified symptoms and signs involving the digestive system and abdomen Status: Acute Assessment and Plan: See operative note.. Exploratory laparotomy 2. Repair of perforated gastric ulcer with omental Jaison patch 3. Biopsy of gastric ulcer Postop care per surgery. DVT prophylaxis per surgery. Looks like the patient is on subcu Lovenox. Pain management and antibiotics per surgery. 04/24/21 13:40 04/23 Patient with a perforated gastric ulcer status post surgical repair postop day number 1, patient states her abdominal pain is better compared to when she arrived, patient on NG tube, and has REG drain seen by surgical service patient is NPO will continue decompress and monitor, surgical service further recommendation to follow. 623 Patient with a perforated gastric ulcer status post surgical repair postop day number 2, today patient UGI with water soluble contrast, showed Postsurgical changes without evidence of contrast extravasation. patient states her abdominal pain is better compared to when she arrived, today patient is passing gas but no BM, patient on NG tube, and has REG drain seen by surgical service patient is NPO patient be seen by surgery service and further recommendation to follow. (2) Dementia: Code(s): F03.90 - Unspecified dementia without behavioral disturbance Status: Chronic Assessment and Plan: Continue with home medications when she no longer has NG tube and it is okay with surgery for her to eat. At this time she is NPO and has an NG tube. (3) Asthma: Code(s): J45.909 - Unspecified asthma, uncomplicated Status: Chronic Assessment and Plan: Continue with inhaler Subjective Date/time seen: 04/24/21 13:40 04/23 Patient with a perforated gastric ulcer status post surgical repair postop day number 1, patient states her abdominal pain is better compared to when she arrived, patient on NG tube, and has REG drain seen by surgical service patient is NPO will continue decompress and monitor, surgical service further recommendation to follow. 24 Patient with a perforated gastric ulcer status post surgical repair postop day number 2, today patient UGI with water soluble contrast, showed Postsurgical changes without evidence of contrast extravasation. patient states her abdominal pain is better compared to when she arrived, today patient is passing gas but no BM, patient on NG tube, and has REG drain seen by surgical service patient is NPO patient be seen by surgery service and further recommendation to follow. Review of Systems Constitutional: Constitutional: Reports as per HPI and Reports no additional constitutional complaints Exam Narrative: Exam Narrative: Elderly frail Patient is comfortable, NAD HEENT: eyes are clear and none icteric NG tube in place LUNGS:CTA HEART: RR S1S2 ABD: Bowel sounds faint diffusely tender Lower extremities: no edema SKIN: nonjaundiced Neuro: grossly intact. Objective Data Vital Signs Vital Signs: Vital Signs - 24 hr 04/23/21 14:00 04/23/21 22:44 04/24/21 06:00 Temperature 98.6 F 98.3 F 99.0 F Pulse Rate 88 103 H 105 H Respiratory Rate 18 18 20 Blood Pressure 112/53 L 110/44 L 128/48 L Pulse Oximetry 93 92 95 04/24/21 08:00 Temperature Pulse Rate Respiratory Rate Blood Pressure Pulse Oximetry 95 Intake/Output Intake/Output: Intake & Output 04/21/21 04/22/21 04/23/21 04/24/21 23:59 23:59 23:59 23:59 Intake Total 2750 600 350 Output Total 470 2020 515 Balance 7791 -7027 -803 Meds/Results Medications: Active Medications Generic Name Dose Route Start Last Admin Trade Name Freq PRN Reason Stop Dose Admin Albuterol 2 puff 04/24/21 07:58 Albuterol Sulfate (*Sp) Aerosol 1 Puff INHALATION QID PRN shortness of breath Docusate Sodium 100 mg 04/24/21 09:00 04/24/21 10:20 Docusate So
[2021-04-24] MEDS: MEMANTINE 5 MG TABLET PO (17:11)
[2021-04-24] MEDS: SUCRALFATE SUSP 100 MG/ML 10 ML UDC 1000 MG PO ×2 (17:11→21:42)
[2021-04-24 21:11] VITALS: O2SAT 97
[2021-04-24 21:17] VITALS: O2SAT 95
[2021-04-24] MEDS: MULTIVITAMINS /C LUTEIN (CENTRUM SILVER) TABLET *BKC 1 TAB PO (21:42)
[2021-04-24] MEDS: DONEPEZIL HCL 10 MG TABLET PO (21:43)
[2021-04-24] MEDS: QUEtiapine FUMARATE 25 MG TABLET 50 MG PO (21:43)
[2021-04-24 21:55] VITALS: BP 110/60; PULSE 81; RESP 17; TEMP 36.8; O2SAT 97
[2021-04-25] VITALS (10 sets, daily range): BP systolic 101–111; BP diastolic 42–53; PULSE 82–100; RESP 16–18; TEMP 37.1–37.6; O2SAT 92–98
[2021-04-25] MEDS: metroNIDAZOLE 500 MG/ISO 100ML 500 MG/100 ML BAG 100 MG IVPB ×4 (05:12→20:29)
[2021-04-25 06:29] LABS: Hematocrit 34.4 % (37.0-47.0); Hemoglobin 11.2 g/dL (12.0-15.0); Mean Corpuscular HGB Conc 32.6 g/dl (32-36); Mean Corpuscular Hemoglobin 26.9 pg (26-34); Mean Corpuscular Volume 82.7 fl (80-100); Mean Platelet Volume 9.3 fl (7.4-10.4); Platelet Count Result 215 k/mm3 (150-375); Red Blood Count 4.16 M/mm3 (4.2-5.4); Red Cell Distribution Width 15.8 % (11.5-14.5); White Blood Count 10.2 K/mm3 (4.5-10.0)
[2021-04-25 06:48] LABS: Anion Gap 3 mmol/L (8-16); Blood Urea Nitrogen 13 mg/dL (7-17); Calcium 8.2 mg/dL (8.4-10.2); Carbon Dioxide 30 mmol/L (22-30); Chloride 106 mmol/L (98-107); Estimated CRCL calculation 39 ml/min; Estimated Glomerular Filt Rate > 60; Glucose 102 mg/dL (65-105); Potassium 3.4 mmol/L (3.4-5.0); Sodium 139 mmol/L (137-145)
[2021-04-25] MEDS: LACTATED RINGERS 1,000 ML 125 ML IV CONT ×2 (07:42→16:22)
[2021-04-25] MEDS: SUCRALFATE SUSP 100 MG/ML 10 ML UDC 1000 MG PO ×4 (07:44→20:34)
--- NOTE | 2021-04-25 08:31 | ECG_ITS ---
Measurements Intervals [place] Rate: 86 P: 38 DC: 174 QRS: 36 QRSD: 84 T: 17 QT: 346 QTc: 416 Interpretive Statements SINUS RHYTHM NORMAL ECG Electronically Signed On 04-25-2021 9:04:28 CDT by Mariano Wilson D.O.
[2021-04-25] MEDS: POTASSIUM CHLORIDE 20 MEQ PACKET (FOR LIQUID) 40 MEQ PO (08:35)
[2021-04-25] MEDS: PANTOPRAZOLE SODIUM IV 40 MG VIAL IV PUSH (08:36)
[2021-04-25] MEDS: DOCUSATE SODIUM 100 MG CAPSULE PO (08:36)
[2021-04-25] MEDS: ENOXAPARIN 40 MG/0.4 ML SYRINGE SUB-Q (08:37)
[2021-04-25] MEDS: MEMANTINE 5 MG TABLET PO ×2 (08:37→17:08)
[2021-04-25] MEDS: MAGNESIUM OXIDE 400 MG TABLET PO (08:37)
[2021-04-25] MEDS: SERTRALINE HCL 50 MG TABLET 100 MG PO (08:38)
--- NOTE | 2021-04-25 10:59 | PM.PNGS ---
Progress Note: A&P Assessment and Plan (1) Perforated gastric ulcer: Code(s): K25.5 - Chronic or unspecified gastric ulcer with perforation Status: Acute Assessment and Plan: Continue Protonix and Carafate Advance to full liquids today Calvillo out today Continue IV antibiotics Subjective Subjective Date/Time Seen: 04/25/21 10:59 Interval history: Tolerating clear liquids. Pain controlled. Not very active yet. Exam GI: Inspection: incision (midline incision clean and dry) and other (REG serosanguinous) Objective Data Vital Signs Vital Signs: Vital Signs - 24 hr 04/24/21 21:11 04/24/21 21:17 04/24/21 21:55 Temperature 36.8 C Pulse Rate 81 Respiratory Rate 17 Blood Pressure 110/60 Pulse Oximetry 97 95 97 04/25/21 05:29 04/25/21 08:00 04/25/21 08:40 Temperature 37.1 C Pulse Rate 91 90 Respiratory Rate 17 Blood Pressure 101/52 L Pulse Oximetry 98 98 Intake/Output Intake/Output: Intake & Output 04/22/21 04/23/21 04/24/21 04/25/21 23:59 23:59 23:59 23:59 Intake Total 2750 600 1890 1320 Output Total 470 2020 1105 600 Balance 2280 -1420 785 720 Meds/Results Medications: Active Medications Generic Name Dose Route Start Last Admin Trade Name Freq PRN Reason Stop Dose Admin Albuterol 2 puff 04/24/21 07:58 Albuterol Sulfate (*Sp) Aerosol 1 Puff INHALATION QID PRN shortness of breath Docusate Sodium 100 mg 04/24/21 09:00 04/25/21 08:36 Docusate Sodium 100 Mg Capsule PO 100 mg DAILY JEWEL Administration Donepezil HCl 10 mg 04/24/21 21:00 04/24/21 21:43 Donepezil Hcl 10 Mg Tablet PO 10 mg HS JEWEL Administration Enoxaparin Sodium 40 mg 04/22/21 09:00 04/25/21 08:37 Enoxaparin 40 Mg/0.4 Ml Syringe SUB-Q 40 mg DAILY JEWEL Administration Levofloxacin/Dextrose 750 mg in 150 mls @ 100 mls/hr 04/24/21 10:00 04/24/21 11:51 Levaquin 750 Mg/D5w 150 Ml IVPB Infused Q48H JEWEL Infusion Metronidazole 500 mg in 100 mls @ 100 mls/hr 04/22/21 09:00 04/25/21 09:36 Flagyl 500 Mg/Iso Soln 100 Ml IVPB Infused Q6H JEWEL Infusion Lactated Ringer's 1,000 mls @ 125 mls/hr 04/24/21 08:25 04/25/21 07:42 Lr - Lactated Ringers Iv IV CONT 125 mls/hr .Q8H JEWEL Administration Acetaminophen 1,000 mg in 100 mls @ 400 mls/hr 04/24/21 13:36 04/24/21 14:21 Ofirmev 1,000 Mg Ivpb IVPB 04/25/21 13:37 Infused Q6H PRN Infusion Pain Rated 4-6 Loratadine 10 mg 04/24/21 08:07 Loratadine 10 Mg Tablet PO HS PRN runny nose Magnesium Oxide 400 mg 04/25/21 09:00 04/25/21 08:37 Magnesium Oxide 400 Mg Tablet PO 400 mg QAM JEWEL Administration Memantine 5 mg 04/24/21 09:00 04/25/21 08:37 Memantine 5 Mg Tablet PO 5 mg BID JEWEL Administration Morphine Sulfate 2 mg 04/22/21 07:56 04/23/21 22:55 Morphine Sulfate (*Crx) 2 Mg/Ml Inj IV PUSH 2 mg Q2H PRN Administration Pain Rated 4-6 Morphine Sulfate 4 mg 04/22/21 07:56 04/24/21 01:37 Morphine Sulfate (*Crx) 4 Mg/Ml Inj IV PUSH 4 mg Q2H PRN Administration Pain Rated 7-10 Multivitamins/Minerals 1 tab 04/24/21 21:00 04/24/21 21:42 Multivitamins /C Lutein (Centrum Silver) Tablet *Bkc PO 1 tab HS JEWEL Administration Ondansetron HCl 4 mg 04/22/21 07:56 04/22/21 20:31 Ondansetron Inj 4 Mg/2 Ml Vial IV PUSH 4 mg Q4H PRN Administration Nausea And Vomiting Pantoprazole Sodium 40 mg 04/22/21 09:00 04/25/21 08:36 Pantoprazole Sodium Iv 40 Mg Vial IV PUSH 40 mg Q12HR JEWEL Administration Phenol 1 spray 04/22/21 15:38 04/23/21 09:29 Phenol/Sod Pheno Nicholson Franco (*Bkc) MUCOUS MEM 1 spray PRN PRN Administration Sore Throat Quetiapine Fumarate 50 mg 04/24/21 21:00 04/24/21 21:43 Quetiapine Fumarate 25 Mg Tablet PO 50 mg HS JEWEL Administration Sertraline HCl 100 mg 04/24/21 09:00 04/25/21 08:38 Sertraline Hcl 50 Mg Tablet PO 100 mg DAILY JEWEL Admi
--- NOTE | 2021-04-25 12:38 | PM.IMPN ---
Progress Note: A&P Assessment and Plan (1) Perforated abdominal viscus: Code(s): R19.8 - Other specified symptoms and signs involving the digestive system and abdomen Status: Acute Assessment and Plan: See operative note.. Exploratory laparotomy 2. Repair of perforated gastric ulcer with omental Jaison patch 3. Biopsy of gastric ulcer Postop care per surgery. DVT prophylaxis per surgery. Looks like the patient is on subcu Lovenox. Pain management and antibiotics per surgery. 04/25/21 12:38 04/23 Patient with a perforated gastric ulcer status post surgical repair postop day number 1, patient states her abdominal pain is better compared to when she arrived, patient on NG tube, and has REG drain seen by surgical service patient is NPO will continue decompress and monitor, surgical service further recommendation to follow. 623 Patient with a perforated gastric ulcer status post surgical repair postop day number 2, today patient UGI with water soluble contrast, showed Postsurgical changes without evidence of contrast extravasation. patient states her abdominal pain is better compared to when she arrived, today patient is passing gas but no BM, patient on NG tube, and has REG drain seen by surgical service patient is NPO patient be seen by surgery service and further recommendation to follow. 04/25 today patient states feeling much better, passing gas but no BM, seen by surgery service NG tube is out and started the patient clear liquid and continue IV antibiotic will continue to monitor and further recommendation to follow. will have PT/OT to work with patient and further recommendation to follow. (2) Dementia: Code(s): F03.90 - Unspecified dementia without behavioral disturbance Status: Chronic Assessment and Plan: Continue with home medications when she no longer has NG tube and it is okay with surgery for her to eat. At this time she is NPO and has an NG tube. (3) Asthma: Code(s): J45.909 - Unspecified asthma, uncomplicated Status: Chronic Assessment and Plan: Continue with inhaler Subjective Date/time seen: 04/25/21 12:38 04/23 Patient with a perforated gastric ulcer status post surgical repair postop day number 1, patient states her abdominal pain is better compared to when she arrived, patient on NG tube, and has REG drain seen by surgical service patient is NPO will continue decompress and monitor, surgical service further recommendation to follow. 623 Patient with a perforated gastric ulcer status post surgical repair postop day number 2, today patient UGI with water soluble contrast, showed Postsurgical changes without evidence of contrast extravasation. patient states her abdominal pain is better compared to when she arrived, today patient is passing gas but no BM, patient on NG tube, and has REG drain seen by surgical service patient is NPO patient be seen by surgery service and further recommendation to follow. 04/25 today patient states feeling much better, passing gas but no BM, seen by surgery service NG tube is out and started the patient clear liquid and continue IV antibiotic will continue to monitor and further recommendation to follow. will have PT/OT to work with patient and further recommendation to follow. Review of Systems Constitutional: Constitutional: Reports as per HPI and Reports no additional constitutional complaints Exam Narrative: Exam Narrative: Elderly frail Patient is comfortable, NAD HEENT: eyes are clear and none icteric LUNGS:CTA HEART: RR S1S2 ABD: Bowel sounds faint diffusely tender Lower extremities: no edema SKIN: nonjaundiced Neuro: grossly intact. Objective Data Vital Signs Vital Signs: Vital Signs - 24 hr 04/24/21 21:11 04/24/21 21:17 04/24/21 21:55 Temperature 98.2 F Pulse Rate 81 Respiratory Rate 17 Blood Pressure 110/60 Pulse Oximetry 97 95 97 04/25/21 05:29 04/25/21 08:00 04/25/21 08:40 Temperat
[2021-04-25] MEDS: HYDROcodone/acetaminophen (*CRX) 5-325 MG TABLET 1 TAB PO (17:18)
[2021-04-25] MEDS: MULTIVITAMINS /C LUTEIN (CENTRUM SILVER) TABLET *BKC 1 TAB PO (20:32)
[2021-04-25] MEDS: QUEtiapine FUMARATE 25 MG TABLET 50 MG PO (20:33)
[2021-04-25] MEDS: PANTOPRAZOLE 40 MG TABLET PO (20:33)
[2021-04-26] VITALS: PULSE 82
[2021-04-26] MEDS: DONEPEZIL HCL 10 MG TABLET PO ×2 (00:04→20:46)
[2021-04-26] MEDS: LACTATED RINGERS 1,000 ML 125 ML IV CONT ×2 (00:07→08:56)
[2021-04-26] MEDS: metroNIDAZOLE 500 MG/ISO 100ML 500 MG/100 ML BAG 100 MG IVPB ×4 (02:37→20:43)
[2021-04-26 04:00] VITALS: PULSE 80
[2021-04-26] MEDS: SUCRALFATE SUSP 100 MG/ML 10 ML UDC 1000 MG PO ×4 (05:46→20:45)
[2021-04-26 06:00] VITALS: BP 113/53; PULSE 81; RESP 20; TEMP 36.1; O2SAT 94
[2021-04-26 06:38] LABS: Hematocrit 34.4 % (37.0-47.0); Mean Corpuscular Hemoglobin 26.5 pg (26-34); Mean Corpuscular Volume 82.9 fl (80-100); Mean Platelet Volume 9.1 fl (7.4-10.4); Platelet Count Result 209 k/mm3 (150-375); Red Blood Count 4.15 M/mm3 (4.2-5.4); Red Cell Distribution Width 15.5 % (11.5-14.5); White Blood Count 7.7 K/mm3 (4.5-10.0)
[2021-04-26 06:55] LABS: Anion Gap 5 mmol/L (8-16); Blood Urea Nitrogen 10 mg/dL (7-17); Carbon Dioxide 27 mmol/L (22-30); Chloride 105 mmol/L (98-107); Estimated CRCL calculation 50 ml/min; Estimated Glomerular Filt Rate > 60; Glucose 94 mg/dL (65-105); Magnesium 1.8 mg/dL (1.6-2.3); Potassium 3.4 mmol/L (3.4-5.0); Sodium 137 mmol/L (137-145)
[2021-04-26] MEDS: ENOXAPARIN 40 MG/0.4 ML SYRINGE SUB-Q (08:52)
[2021-04-26] MEDS: DOCUSATE SODIUM 100 MG CAPSULE PO (08:52)
[2021-04-26] MEDS: POTASSIUM CHLORIDE 20 MEQ TABLET 40 MEQ PO (08:52)
[2021-04-26] MEDS: MAGNESIUM OXIDE 400 MG TABLET PO (08:53)
[2021-04-26] MEDS: PANTOPRAZOLE 40 MG TABLET PO ×2 (08:53→20:45)
[2021-04-26] MEDS: MEMANTINE 5 MG TABLET PO ×2 (08:53→16:29)
[2021-04-26] MEDS: SERTRALINE HCL 50 MG TABLET 100 MG PO (08:53)
--- NOTE | 2021-04-26 09:57 | PM.PNGS ---
Progress Note: A&P Assessment and Plan (1) Perforated gastric ulcer: Code(s): K25.5 - Chronic or unspecified gastric ulcer with perforation Status: Acute Assessment and Plan: doing well after biopsy and closure with omental patch repair 4 days ago. Pathology does not show any evidence of cancer. Patient tolerating full liquids. Will advance to low fiber diet. Up more in the chair. Probably DC REG drain in tomorrow. Continue IV antibiotics as well as Protonix and Carafate. Making good progress. Subjective Subjective Date/Time Seen: 04/26/21 09:57 Post Op day: 4 Patient reports: no new complaints, feels better, pain is less, bowel movement and afebrile Exam GI: Inspection: non-distended and incision ( Healing well, REG drain serosanguineous) GI Palp: Yes Soft to palpation and Yes Tenderness to palpation present (GI) ( minimal tenderness) Auscultation: normal bowel sounds Objective Data Vital Signs Vital Signs: Vital Signs - 24 hr 04/25/21 12:00 04/25/21 14:00 04/25/21 14:45 Temperature 37.2 C Pulse Rate 93 88 Respiratory Rate 16 Blood Pressure 105/42 L Pulse Oximetry 97 95 04/25/21 15:05 04/25/21 16:00 04/25/21 20:05 Temperature Pulse Rate 100 91 Respiratory Rate 18 Blood Pressure Pulse Oximetry 95 92 04/25/21 21:49 04/26/21 00:00 04/26/21 04:00 Temperature 37.6 C Pulse Rate 91 82 80 Respiratory Rate 18 Blood Pressure 111/53 L Pulse Oximetry 92 04/26/21 06:00 Temperature 36.1 C L Pulse Rate 81 Respiratory Rate 20 Blood Pressure 113/53 L Pulse Oximetry 94 Intake/Output Intake/Output: Intake & Output 04/23/21 04/24/21 04/25/21 04/26/21 23:59 23:59 23:59 23:59 Intake Total 600 1890 3320 2300 Output Total 2019 1105 1000 50 Balance -2611 441 7711 2250 Meds/Results Medications: Active Medications Generic Name Dose Route Start Last Admin Trade Name Freq PRN Reason Stop Dose Admin Acetaminophen 650 mg 04/25/21 13:09 Acetaminophen 325 Mg Tablet PO Q4H PRN Mild Pain (1-3) or Fever Hydrocodone Bitart/Acetaminophen 1 tab 04/25/21 13:08 04/25/21 17:18 Hydrocodone/Acetaminophen (*Crx) 5-325 Mg Tablet PO 1 tab Q4H PRN Administration Pain Rated 4-6 Albuterol 2 puff 04/24/21 07:58 Albuterol Sulfate (*Sp) Aerosol 1 Puff INHALATION QID PRN shortness of breath Docusate Sodium 100 mg 04/24/21 09:00 04/26/21 08:52 Docusate Sodium 100 Mg Capsule PO 100 mg DAILY JEWEL Administration Donepezil HCl 10 mg 04/24/21 21:00 04/26/21 00:04 Donepezil Hcl 10 Mg Tablet PO 10 mg HS JEWEL Administration Enoxaparin Sodium 40 mg 04/22/21 09:00 04/26/21 08:52 Enoxaparin 40 Mg/0.4 Ml Syringe SUB-Q 40 mg DAILY JEWEL Administration Levofloxacin/Dextrose 750 mg in 150 mls @ 100 mls/hr 04/24/21 10:00 04/24/21 11:51 Levaquin 750 Mg/D5w 150 Ml IVPB Infused Q48H JEWEL Infusion Metronidazole 500 mg in 100 mls @ 100 mls/hr 04/22/21 09:00 04/26/21 08:55 Flagyl 500 Mg/Iso Soln 100 Ml IVPB 100 mls/hr Q6H JEWEL Administration Loratadine 10 mg 04/24/21 08:07 Loratadine 10 Mg Tablet PO HS PRN runny nose Magnesium Oxide 400 mg 04/25/21 09:00 04/26/21 08:53 Magnesium Oxide 400 Mg Tablet PO 400 mg QAM JEWEL Administration Memantine 5 mg 04/24/21 09:00 04/26/21 08:53 Memantine 5 Mg Tablet PO 5 mg BID JEWEL Administration Morphine Sulfate 2 mg 04/22/21 07:56 04/23/21 22:55 Morphine Sulfate (*Crx) 2 Mg/Ml Inj IV PUSH 2 mg Q2H PRN Administration Pain Rated 4-6 Morphine Sulfate 4 mg 04/22/21 07:56 04/24/21 01:37 Morphine Sulfate (*Crx) 4 Mg/Ml Inj IV PUSH 4 mg Q2H PRN Administration Pain Rated 7-10 Multivitamins/Minerals 1 tab 04/24/21 21:00 04/25/21 20:32 Multivitamins /C Lutein (Centrum Silver) Tablet *Bkc PO 1 tab HS JEWEL Administration Ondansetron HCl 4 mg 04/22/21 07:56 04/22/21 20:31 Ondansetron In
--- NOTE | 2021-04-26 12:33 | PM.IMPN ---
Progress Note: A&P Assessment and Plan (1) Perforated abdominal viscus: Code(s): R19.8 - Other specified symptoms and signs involving the digestive system and abdomen Status: Deleted Assessment and Plan: See operative note.. Exploratory laparotomy 2. Repair of perforated gastric ulcer with omental Jaison patch 3. Biopsy of gastric ulcer Postop care per surgery. DVT prophylaxis per surgery. Looks like the patient is on subcu Lovenox. Pain management and antibiotics per surgery. 04/26/21 12:33 04/23 Patient with a perforated gastric ulcer status post surgical repair postop day number 1, patient states her abdominal pain is better compared to when she arrived, patient on NG tube, and has REG drain seen by surgical service patient is NPO will continue decompress and monitor, surgical service further recommendation to follow. 623 Patient with a perforated gastric ulcer status post surgical repair postop day number 2, today patient UGI with water soluble contrast, showed Postsurgical changes without evidence of contrast extravasation. patient states her abdominal pain is better compared to when she arrived, today patient is passing gas but no BM, patient on NG tube, and has REG drain seen by surgical service patient is NPO patient be seen by surgery service and further recommendation to follow. 04/25 today patient states feeling much better, passing gas but no BM, seen by surgery service NG tube is out and started the patient clear liquid and continue IV antibiotic will continue to monitor and further recommendation to follow. will have PT/OT to work with patient and further recommendation to follow. 04/26 today patient had a BM, doing much better, able to tolerate full liquids, seen by surgery service and advanced diet low-fiber diet, out of the bed on chair, increased activity, may remove the RICH drained tomorrow, will continue protonix and Carafate, will continue to monitor patient's symptoms are improving. (2) Dementia: Code(s): F03.90 - Unspecified dementia without behavioral disturbance Status: Chronic Assessment and Plan: Continue with home medications when she no longer has NG tube and it is okay with surgery for her to eat. At this time she is NPO and has an NG tube. (3) Asthma: Code(s): J45.909 - Unspecified asthma, uncomplicated Status: Chronic Assessment and Plan: Continue with inhaler Subjective Date/time seen: 04/26/21 12:33 04/23 Patient with a perforated gastric ulcer status post surgical repair postop day number 1, patient states her abdominal pain is better compared to when she arrived, patient on NG tube, and has REG drain seen by surgical service patient is NPO will continue decompress and monitor, surgical service further recommendation to follow. 623 Patient with a perforated gastric ulcer status post surgical repair postop day number 2, today patient UGI with water soluble contrast, showed Postsurgical changes without evidence of contrast extravasation. patient states her abdominal pain is better compared to when she arrived, today patient is passing gas but no BM, patient on NG tube, and has REG drain seen by surgical service patient is NPO patient be seen by surgery service and further recommendation to follow. 04/25 today patient states feeling much better, passing gas but no BM, seen by surgery service NG tube is out and started the patient clear liquid and continue IV antibiotic will continue to monitor and further recommendation to follow. will have PT/OT to work with patient and further recommendation to follow. 04/26 today patient had a BM, doing much better, able to tolerate full liquids, seen by surgery service and advanced diet low-fiber diet, out of the bed on chair, increased activity, may remove the RICH drained tomorrow, will continue protonix and Carafate, will continue to monitor patient's symptoms are improving. Review of Systems Constituti
[2021-04-26 14:00] VITALS: BP 125/55; PULSE 78; RESP 16; TEMP 36.4; O2SAT 97
[2021-04-26] MEDS: POTASSIUM CHLORIDE 20 MEQ TABLET.ER PO (16:30)
[2021-04-26 20:00] VITALS: PULSE 86; PULSE 88; RESP 18; O2SAT 95
[2021-04-26] MEDS: QUEtiapine FUMARATE 25 MG TABLET 50 MG PO (20:45)
[2021-04-26] MEDS: MULTIVITAMINS /C LUTEIN (CENTRUM SILVER) TABLET *BKC 1 TAB PO (20:47)
[2021-04-26 22:00] VITALS: BP 123/58; PULSE 88; RESP 18; TEMP 36.5; O2SAT 95
[2021-04-27] MEDS: metroNIDAZOLE 500 MG/ISO 100ML 500 MG/100 ML BAG 100 MG IVPB ×4 (03:18→21:03)
[2021-04-27 05:54] VITALS: BP 121/65; PULSE 84; RESP 18; TEMP 36.2; O2SAT 97
[2021-04-27] MEDS: SUCRALFATE SUSP 100 MG/ML 10 ML UDC 1000 MG PO ×4 (06:09→21:05)
[2021-04-27 06:48] LABS: Hematocrit 35.8 % (37.0-47.0); Hemoglobin 11.8 g/dL (12.0-15.0); Mean Corpuscular Hemoglobin 26.6 pg (26-34); Mean Corpuscular Volume 80.8 fl (80-100); Mean Platelet Volume 9.8 fl (7.4-10.4); Platelet Count Result 225 k/mm3 (150-375); Red Blood Count 4.43 M/mm3 (4.2-5.4); Red Cell Distribution Width 15.3 % (11.5-14.5); White Blood Count 7.3 K/mm3 (4.5-10.0)
[2021-04-27 07:01] LABS: Anion Gap 5 mmol/L (8-16); Blood Urea Nitrogen 6 mg/dL (7-17); Calcium 8.2 mg/dL (8.4-10.2); Carbon Dioxide 24 mmol/L (22-30); Chloride 106 mmol/L (98-107); Estimated CRCL calculation 50 ml/min; Estimated Glomerular Filt Rate > 60; Glucose 95 mg/dL (65-105); Magnesium 1.8 mg/dL (1.6-2.3); Potassium 3.8 mmol/L (3.4-5.0); Sodium 135 mmol/L (137-145)
[2021-04-27] MEDS: PANTOPRAZOLE 40 MG TABLET PO ×2 (08:07→21:06)
[2021-04-27] MEDS: DOCUSATE SODIUM 100 MG CAPSULE PO (08:07)
[2021-04-27] MEDS: POTASSIUM CHLORIDE 20 MEQ TABLET.ER PO ×2 (08:07→16:29)
[2021-04-27] MEDS: ENOXAPARIN 40 MG/0.4 ML SYRINGE SUB-Q (08:08)
[2021-04-27] MEDS: MAGNESIUM OXIDE 400 MG TABLET PO (08:08)
[2021-04-27] MEDS: MEMANTINE 5 MG TABLET PO ×2 (08:08→16:29)
[2021-04-27] MEDS: SERTRALINE HCL 50 MG TABLET 100 MG PO (08:09)
--- NOTE | 2021-04-27 10:00 | PM.PNGS ---
Progress Note: A&P Assessment and Plan (1) Perforated gastric ulcer: Code(s): K25.5 - Chronic or unspecified gastric ulcer with perforation Status: Acute Assessment and Plan: Doing well after surgical closure and omental patch. Advanced to regular diet. DC REG drain. Increase ambulation. Continue IV antibiotics and acid reducing with barrier medication. Subjective Subjective Date/Time Seen: 04/27/21 10:00 Post Op day: 5 Patient reports: no new complaints, pain is less, bowel movement and afebrile Exam Const: General: comfortable and no acute distress; No confusion Orientation/consciousness: patient oriented x3 and No confusion GI: Inspection: non-distended, incision ( Dry and intact, healing well) and other ( REG drain serous.) GI Palp: Yes Soft to palpation, Yes Tenderness to palpation present (GI) ( Minimal incisional tenderness.), No Guarding due to palpation present (GI) and No Rebound tenderness present Auscultation: normal bowel sounds Extrem: General: no calf tenderness and no edema Objective Data Vital Signs Vital Signs: Vital Signs - 24 hr 04/26/21 14:00 04/26/21 20:00 04/26/21 22:00 Temperature 36.4 C 36.5 C Pulse Rate 78 88 88 Respiratory Rate 16 18 18 Blood Pressure 125/55 L 123/58 L Pulse Oximetry 97 95 95 04/27/21 05:54 Temperature 36.2 C L Pulse Rate 84 Respiratory Rate 18 Blood Pressure 121/65 Pulse Oximetry 97 Intake/Output Intake/Output: Intake & Output 04/24/21 04/25/21 04/26/21 04/27/21 23:59 23:59 23:59 23:59 Intake Total 1890 3320 3700 850 Output Total 1105 1000 750 800 Balance 785 2320 2950 50 Meds/Results Medications: Active Medications Generic Name Dose Route Start Last Admin Trade Name Freq PRN Reason Stop Dose Admin Acetaminophen 650 mg 04/25/21 13:09 Acetaminophen 325 Mg Tablet PO Q4H PRN Mild Pain (1-3) or Fever Hydrocodone Bitart/Acetaminophen 1 tab 04/25/21 13:08 04/25/21 17:18 Hydrocodone/Acetaminophen (*Crx) 5-325 Mg Tablet PO 1 tab Q4H PRN Administration Pain Rated 4-6 Albuterol 2 puff 04/24/21 07:58 Albuterol Sulfate (*Sp) Aerosol 1 Puff INHALATION QID PRN shortness of breath Docusate Sodium 100 mg 04/24/21 09:00 04/27/21 08:07 Docusate Sodium 100 Mg Capsule PO 100 mg DAILY JEWEL Administration Donepezil HCl 10 mg 04/24/21 21:00 04/26/21 20:46 Donepezil Hcl 10 Mg Tablet PO 10 mg HS JEWEL Administration Enoxaparin Sodium 40 mg 04/22/21 09:00 04/27/21 08:08 Enoxaparin 40 Mg/0.4 Ml Syringe SUB-Q 40 mg DAILY JEWEL Administration Levofloxacin/Dextrose 750 mg in 150 mls @ 100 mls/hr 04/24/21 10:00 04/26/21 13:35 Levaquin 750 Mg/D5w 150 Ml IVPB 100 mls/hr Q48H JEWEL Infusion Metronidazole 500 mg in 100 mls @ 100 mls/hr 04/22/21 09:00 04/27/21 08:08 Flagyl 500 Mg/Iso Soln 100 Ml IVPB 100 mls/hr Q6H JEWEL Administration Loratadine 10 mg 04/24/21 08:07 Loratadine 10 Mg Tablet PO HS PRN runny nose Magnesium Oxide 400 mg 04/25/21 09:00 04/27/21 08:08 Magnesium Oxide 400 Mg Tablet PO 400 mg QAM JEWEL Administration Memantine 5 mg 04/24/21 09:00 04/27/21 08:08 Memantine 5 Mg Tablet PO 5 mg BID JEWEL Administration Morphine Sulfate 2 mg 04/22/21 07:56 04/23/21 22:55 Morphine Sulfate (*Crx) 2 Mg/Ml Inj IV PUSH 2 mg Q2H PRN Administration Pain Rated 4-6 Morphine Sulfate 4 mg 04/22/21 07:56 04/24/21 01:37 Morphine Sulfate (*Crx) 4 Mg/Ml Inj IV PUSH 4 mg Q2H PRN Administration Pain Rated 7-10 Multivitamins/Minerals 1 tab 04/24/21 21:00 04/26/21 20:47 Multivitamins /C Lutein (Centrum Silver) Tablet *Bkc PO 1 tab HS JEWEL Administration Ondansetron HCl 4 mg 04/22/21 07:56 04/22/21 20:31 Ondansetron Inj 4 Mg/2 Ml Vial IV PUSH 4 mg Q4H PRN Administration Nausea And Vomiting Pantoprazole Sodium 40 mg 04/25/21 21:00 04/27/21 08:07 Pantoprazole 40 Mg
--- NOTE | 2021-04-27 12:06 | PM.IMPN ---
Progress Note: A&P Assessment and Plan (1) Perforated abdominal viscus: Code(s): R19.8 - Other specified symptoms and signs involving the digestive system and abdomen Status: Deleted Assessment and Plan: See operative note.. Exploratory laparotomy 2. Repair of perforated gastric ulcer with omental Jaison patch 3. Biopsy of gastric ulcer Postop care per surgery. DVT prophylaxis per surgery. Looks like the patient is on subcu Lovenox. Pain management and antibiotics per surgery. 04/27/21 12:04/23 Patient with a perforated gastric ulcer status post surgical repair postop day number 1, patient states her abdominal pain is better compared to when she arrived, patient on NG tube, and has REG drain seen by surgical service patient is NPO will continue decompress and monitor, surgical service further recommendation to follow. 623 Patient with a perforated gastric ulcer status post surgical repair postop day number 2, today patient UGI with water soluble contrast, showed Postsurgical changes without evidence of contrast extravasation. patient states her abdominal pain is better compared to when she arrived, today patient is passing gas but no BM, patient on NG tube, and has REG drain seen by surgical service patient is NPO patient be seen by surgery service and further recommendation to follow. 04/25 today patient states feeling much better, passing gas but no BM, seen by surgery service NG tube is out and started the patient clear liquid and continue IV antibiotic will continue to monitor and further recommendation to follow. will have PT/OT to work with patient and further recommendation to follow. 04/26 today patient had a BM, doing much better, able to tolerate full liquids, seen by surgery service and advanced diet low-fiber diet, out of the bed on chair, increased activity, may remove the RICH drained tomorrow, will continue protonix and Carafate, will continue to monitor patient's symptoms are improving. 04/27 today patient states had a BM this morning, patient was seen by surgery service advanced diet to regular, encouraged to ambulate, continue IV antibiotic as well as PPI and Carafate, will CPM possibly discharge tomorrow. (2) Dementia: Code(s): F03.90 - Unspecified dementia without behavioral disturbance Status: Chronic Assessment and Plan: Continue with home medications when she no longer has NG tube and it is okay with surgery for her to eat. At this time she is NPO and has an NG tube. (3) Asthma: Code(s): J45.909 - Unspecified asthma, uncomplicated Status: Chronic Assessment and Plan: Continue with inhaler Subjective Date/time seen: 04/27/21 12:04/23 Patient with a perforated gastric ulcer status post surgical repair postop day number 1, patient states her abdominal pain is better compared to when she arrived, patient on NG tube, and has REG drain seen by surgical service patient is NPO will continue decompress and monitor, surgical service further recommendation to follow. 623 Patient with a perforated gastric ulcer status post surgical repair postop day number 2, today patient UGI with water soluble contrast, showed Postsurgical changes without evidence of contrast extravasation. patient states her abdominal pain is better compared to when she arrived, today patient is passing gas but no BM, patient on NG tube, and has REG drain seen by surgical service patient is NPO patient be seen by surgery service and further recommendation to follow. 04/25 today patient states feeling much better, passing gas but no BM, seen by surgery service NG tube is out and started the patient clear liquid and continue IV antibiotic will continue to monitor and further recommendation to follow. will have PT/OT to work with patient and further recommendation to follow. 04/26 today patient had a BM, doing much better, able to tolerate full liquids, seen by surgery service and advanced diet low-f
[2021-04-27 14:00] VITALS: BP 122/57; PULSE 82; RESP 16; TEMP 37.2; O2SAT 97
[2021-04-27] MEDS: MULTIVITAMINS /C LUTEIN (CENTRUM SILVER) TABLET *BKC 1 TAB PO (21:06)
[2021-04-27] MEDS: DONEPEZIL HCL 10 MG TABLET PO (21:06)
[2021-04-27] MEDS: QUEtiapine FUMARATE 25 MG TABLET 50 MG PO (21:06)
[2021-04-27 22:00] VITALS: BP 130/53; PULSE 87; RESP 16; TEMP 36.3; O2SAT 96
[2021-04-28 01:12] VITALS: O2SAT 94
[2021-04-28] MEDS: metroNIDAZOLE 500 MG/ISO 100ML 500 MG/100 ML BAG 100 MG IVPB ×2 (03:10→08:54)
[2021-04-28] MEDS: SUCRALFATE SUSP 100 MG/ML 10 ML UDC 1000 MG PO ×2 (05:47→12:29)
[2021-04-28 06:00] VITALS: BP 148/65; PULSE 77; RESP 16; TEMP 37.2; O2SAT 97
[2021-04-28 06:13] LABS: Hematocrit 33.3 % (37.0-47.0); Hemoglobin 11.3 g/dL (12.0-15.0); Mean Corpuscular HGB Conc 33.9 g/dl (32-36); Mean Corpuscular Volume 79.7 fl (80-100); Mean Platelet Volume 9.1 fl (7.4-10.4); Platelet Count Result 241 k/mm3 (150-375); Red Blood Count 4.18 M/mm3 (4.2-5.4); Red Cell Distribution Width 15.3 % (11.5-14.5); White Blood Count 11.1 K/mm3 (4.5-10.0)
[2021-04-28 06:39] LABS: Anion Gap 4 mmol/L (8-16); Blood Urea Nitrogen 5 mg/dL (7-17); Calcium 8.4 mg/dL (8.4-10.2); Carbon Dioxide 27 mmol/L (22-30); Chloride 105 mmol/L (98-107); Estimated CRCL calculation 44 ml/min; Estimated Glomerular Filt Rate > 60; Glucose 93 mg/dL (65-105); Magnesium 1.9 mg/dL (1.6-2.3); Potassium 3.8 mmol/L (3.4-5.0); Sodium 136 mmol/L (137-145)
[2021-04-28] MEDS: POTASSIUM CHLORIDE 20 MEQ TABLET.ER PO (08:53)
[2021-04-28] MEDS: MAGNESIUM OXIDE 400 MG TABLET PO (08:53)
[2021-04-28] MEDS: LORATADINE 10 MG TABLET PO (08:53)
[2021-04-28] MEDS: PANTOPRAZOLE 40 MG TABLET PO (08:53)
[2021-04-28] MEDS: SERTRALINE HCL 50 MG TABLET 100 MG PO (08:53)
[2021-04-28] MEDS: MEMANTINE 5 MG TABLET PO (08:53)
[2021-04-28] MEDS: DOCUSATE SODIUM 100 MG CAPSULE PO (08:53)
[2021-04-28] MEDS: ENOXAPARIN 40 MG/0.4 ML SYRINGE SUB-Q (08:53)
--- NOTE | 2021-04-28 12:20 | PM.IMPN ---
Progress Note: A&P Assessment and Plan (1) Perforated abdominal viscus: Code(s): R19.8 - Other specified symptoms and signs involving the digestive system and abdomen Status: Deleted Assessment and Plan: See operative note.. Exploratory laparotomy 2. Repair of perforated gastric ulcer with omental Jaison patch 3. Biopsy of gastric ulcer Postop care per surgery. DVT prophylaxis per surgery. Looks like the patient is on subcu Lovenox. Pain management and antibiotics per surgery. 04/28/21 12:20 04/23 Patient with a perforated gastric ulcer status post surgical repair postop day number 1, patient states her abdominal pain is better compared to when she arrived, patient on NG tube, and has REG drain seen by surgical service patient is NPO will continue decompress and monitor, surgical service further recommendation to follow. 623 Patient with a perforated gastric ulcer status post surgical repair postop day number 2, today patient UGI with water soluble contrast, showed Postsurgical changes without evidence of contrast extravasation. patient states her abdominal pain is better compared to when she arrived, today patient is passing gas but no BM, patient on NG tube, and has REG drain seen by surgical service patient is NPO patient be seen by surgery service and further recommendation to follow. 04/25 today patient states feeling much better, passing gas but no BM, seen by surgery service NG tube is out and started the patient clear liquid and continue IV antibiotic will continue to monitor and further recommendation to follow. will have PT/OT to work with patient and further recommendation to follow. 04/26 today patient had a BM, doing much better, able to tolerate full liquids, seen by surgery service and advanced diet low-fiber diet, out of the bed on chair, increased activity, may remove the RICH drained tomorrow, will continue protonix and Carafate, will continue to monitor patient's symptoms are improving. 04/27 today patient states had a BM this morning, patient was seen by surgery service advanced diet to regular, encouraged to ambulate, continue IV antibiotic as well as PPI and Carafate, will CPM possibly discharge tomorrow. 04/28 today patient states feeling much better, denies any abdominal pain nausea or vomiting, had a BM, discussed with surgery service will discharge the patient home today patient will follow-up with her surgeon as scheduled. (2) Dementia: Code(s): F03.90 - Unspecified dementia without behavioral disturbance Status: Chronic Assessment and Plan: Continue with home medications when she no longer has NG tube and it is okay with surgery for her to eat. At this time she is NPO and has an NG tube. (3) Asthma: Code(s): J45.909 - Unspecified asthma, uncomplicated Status: Chronic Assessment and Plan: Continue with inhaler Subjective Date/time seen: 04/28/21 12:20 04/23 Patient with a perforated gastric ulcer status post surgical repair postop day number 1, patient states her abdominal pain is better compared to when she arrived, patient on NG tube, and has REG drain seen by surgical service patient is NPO will continue decompress and monitor, surgical service further recommendation to follow. 623 Patient with a perforated gastric ulcer status post surgical repair postop day number 2, today patient UGI with water soluble contrast, showed Postsurgical changes without evidence of contrast extravasation. patient states her abdominal pain is better compared to when she arrived, today patient is passing gas but no BM, patient on NG tube, and has REG drain seen by surgical service patient is NPO patient be seen by surgery service and further recommendation to follow. 04/25 today patient states feeling much better, passing gas but no BM, seen by surgery service NG tube is out and started the patient clear liquid and continue IV antibiotic will continue to monitor and further
[2021-04-28 12:51] VITALS: O2SAT 96
--- NOTE | 2021-04-28 13:12 | PM.DS ---
DS: Admitting Diagnosis Admitting Diagnosis Admitting Diagnosis: Perforated abdominal viscus, Abdominal pain -- Post-op dx perforated gastric ulcer Dementia Asthma DS: Discharge Diagnosis Discharge Diagnosis (1) Perforated gastric ulcer: Code(s): K25.5 - Chronic or unspecified gastric ulcer with perforation Status: Acute Assessment and Plan: 04/22/[address] Green the patient underwent an Exploratory laparotomy, Repair of perforated gastric ulcer with omental Jaison patch, Biopsy of gastric ulcer (2) Dementia: Code(s): F03.90 - Unspecified dementia without behavioral disturbance Status: Chronic Assessment and Plan: No acute issues. Continue home medications. I spoke with the patient's daughter/POA, Mary, who she lives with and she feels okay with her coming home with home health today. Mary and her will be home with her. (3) Asthma: Code(s): J45.909 - Unspecified asthma, uncomplicated Status: Chronic Assessment and Plan: Stable, no acute issues. Continue home medications. DS: Summary Hospital Course Reason for hospitalization: This is an 80-year-old woman who presented to the emergency department with acute abdominal pain, nausea, and vomiting. She has a history of GI bleed a long time ago when on blood thinners. Workup in the ED revealed moderate amount of free intraperitoneal air with suspicion for perforated viscus. She had peritoneal signs on exam. Our service was contacted by the ED provider and surgically evaluated. The decision was made to admit the patient and take her urgently to the OR for surgical exploration. Hospital Course: She was started on broad-spectrum IV antibiotics, IV fluids, and made NPO. On 04/22/21 she underwent an exploratory laparotomy, repair of perforated gastric ulcer with omental Jaison patch, and biopsy of gastric ulcer. She was started on IV Protonix. The Hospitalist was consulted for medical management the same day of surgery. She was admitted to the medical floor and appeared hemodynamically stable. She was treated with bowel rest, NG tube decompression, IV PPI, IV antibiotics, and monitoring post-operatively. REG drain was monitored post-op as well and remained stable with serosanguineous drainage. On post-op day 2 she had a Gastrografin upper GI study, which showed no extravasation or perforation. At this time, the NG tube was removed and she was started on clear liquids. Sucralfate and other oral home medications were started. She tolerated this well. Bowel function returned between POD 3 and 4. She was slow in increasing activity and physical therapy and occupational therapy were ordered to help improve strength and mobility. Labs were monitored and her white blood cell count peaked at 13,400 and has been trending down. She has remained afebrile. Her hospitalization was also complicated by mild hypokalemia while reintroducing a diet, which was treated with oral potassium supplementation. Her diet has been advanced and she is now tolerating a regular diet. Her IV Protonix was switched to oral. She has remained medically stable. Her incision appears clean and dry, and is healing well without any signs of infection. REG drain was removed yesterday. She has been voiding well without any complications since her Calvillo catheter was removed on post-op day 3. The patient is now ambulating with a walker and standby assist, which she did not have at home prior to admission. I have spoke with the daughter and career services representative about getting a walker for home while also continuing physical therapy with home health on discharge. I have discussed the case with Dr. Green, who is okay with discharge today while continuing oral antibiotics, oral PPI, and sucralfate. I discussed discharge instructions with the patient and also her daughter by phone, with the patient's permission. Will have her follow-up in 1 week for wound check and to have rosendo removed. Status at Discharge F
[2021-04-28 14:00] VITALS: BP 116/47; PULSE 96; RESP 18; TEMP 36.4; O2SAT 96
[2021-04-28] MEDS: metroNIDAZOLE 250 MG TABLET 500 MG PO (14:31)
[2021-04-28] MEDS: levoFLOXacin 750 MG TABLET PO (14:56)
== END 2021-04-28 16:20 | disposition home health service (06) | DRG 328 ==
LOC: ANHED 03:26 → ANHSURGERY 04:27 → ANH3MEDSUR 08:00
PROVIDERS: Family Medicine; Nurse Practitioner; Admitting Provider Surgery; Emergency Provider Emergency Medicine; PCP Nurse Practitioner Family; Visit Provider Nurse Practitioner Family
PROC: 0DU607Z Supplement Stomach with Autologous Tissue Substitute, Open Approach (ICD-10-PCS; CPT 49000; principal; 2021-04-22 05:00)
DX: K25.5 Chronic or unspecified gastric ulcer with perforation (principal); J45.909 Unspecified asthma, uncomplicated; F03.90 Unspecified dementia, unspecified severity, without behavioral disturbance, psychotic disturbance, mood disturbance, and anxiety; E87.6 Hypokalemia
CPT/HCPCS: 36415; 74177; 74240; 80048; 80053; 81001; 82948; 83735; 84443; 85025; 85027; 87086; 88305; 93005; 96361; 96365; 96375; 97110; 97161; 97165; 97530; 97535; 99285; A9270; C9113; J0131; J0330; J0696; J1170; J1650; J1956; J2270; J2405; J2704; J2710; J3010; J7120; Q9967

== ENCOUNTER 2021-08-13 01:15 | Day surgery (SDC) | payer MEDICARE, BC, OTHER, SELFPAY ==
[2021-08-01 08:51] VITALS: BMI 26.7
--- NOTE | 2021-08-13 09:19 | WPDANESEPPF ---
Anes - Initial Pre Proc Eval Procedure: Operation Date: 08/13/21 11:30 Proposed Procedures p Esophagogastroduodenoscopy - Kulwinder Esposito MD Date/Time: 08/13/21 09:19 Surgeon: Kulwinder Esposito MD Pre Op Diagnosis: gastric ulcer Patient Data Age: 81 Gender: F Height: 1.57 m Weight: 66.4 kg Allergies Allergy/AdvReac Type Severity Reaction Status Date / Time Penicillins Allergy Mild Rash Verified 08/13/21 10:34 Sulfa (Sulfonamide Allergy Mild Rash Verified 08/13/21 10:34 Antibiotics) Home Medications Medication Instructions Recorded Confirmed Type albuterol sulfate [ProAir HFA] 2 puff INHALATION QID PRN 04/22/21 08/01/21 History cetirizine 10 mg PO HS PRN 04/22/21 08/01/21 History donepezil 10 mg PO HS 04/22/21 08/01/21 History quetiapine 50 mg PO HS 04/22/21 08/01/21 History docusate sodium 100 mg PO DAILY 04/23/21 08/01/21 History stwccdwf-xpgqmxf-rgbd-lutein 1 tablet PO HS 04/23/21 08/01/21 History pantoprazole 40 mg PO Q12HR 30 Days #60 tablet 04/28/21 08/01/21 Rx cholecalciferol (vitamin D3) 25 mcg PO HS 08/01/21 08/01/21 History [Vitamin D3] escitalopram oxalate 5 mg PO QAM 08/01/21 08/01/21 History melatonin 10 mg PO HS 08/01/21 08/01/21 History multivitamin with minerals 1 tablet PO DAILY 08/01/21 08/01/21 History [Hair,Skin and Nails] Patient hx anesthesia problems: none Family hx anesthesia problems: none Results Review: All pre-operative results and documents have been reviewed as part of the pre-operative evaluation. [facility] Past Medical History Medical History Asthma Dementia Surgical History Surgical History History of appendectomy History of cholecystectomy History of hysterectomy S/P gastric surgery . Exploratory laparotomy 2. Repair of perforated gastric ulcer with omental Jaison patch 3. Biopsy of gastric ulcer Family History Family History Unknown No pertinent family history Social History Social History Social History: The patient lives with her daughter. She was to a little and is now . She has 4 children. Her daughter is a durable power corporate associate attorney for healthcare. The patient is a full code. 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 She does not use any alcohol marijuana or illicit drugs. Smoking status: Never smoker Alcohol intake: never Substance use: never Living arrangements: with family Additional living arrangements comments: Lives at home with daughter Gender identity (if verbalized by the patient): Female Sexual Orientation (if Verbalized by the Patient): Straight or Heterosexual Spiritual care concerns: No Anes - Eval Final PreProcedure Day of Procedure 08/13/21 09:19 Patient weight: overweight Heart: regular rate and rhythm Lungs: clear to auscultation and normal air movement Airway: Mallampati scale class II Neurological: alert and oriented Last oral intake: >/= 8 hours ASA classification: III Emergent: no Anesthetic plan: proceed Anesthesia type and monitoring: general GIVS Results Review: All pre-operative results and documents have been reviewed as part of the pre-operative evaluation. Informed Consent: The patient's anesthetic plan and its attendant risks and benefits were discussed with the patient/family/POA. Questions were solicited and answers provided to the satisfaction of the patient/family/POA.
[2021-08-13 10:36] VITALS: BP 99/42; PULSE 78; RESP 18; TEMP 36; O2SAT 97
[2021-08-13] MEDS: LACTATED RINGERS 1,000 ML 150 ML IV CONT (10:45)
--- NOTE | 2021-08-13 11:07 | PM.HPGS ---
History of Present Illness History of Present Illness Consent: Risks, benefits, and alternatives have been discussed and questions answered. Patient agrees to proceed with procedure. Chief complaint: gastric ulcer Narrative: Madina Roy Meng is a 81 year old female with perforated gastric ulcer that required surgery 04/2021 when she was using meloxicam, she is doing ok now. Review of Systems Constitutional: Constitutional: Denies headache(s) and Denies weakness Eyes: Eyes: Denies blurry vision ENT: Reports Normal hearing present, Denies headache(s) and Denies neck pain Cardiovascular: Cardiovascular: Denies chest pain and Denies dyspnea Respiratory: Respiratory: Denies dyspnea Gastrointestinal: Gastrointestinal: Reports no additional gastrointestinal complaints Genitourinary: Genitourinary: Denies dysuria Musculoskeletal: Musculoskeletal: Denies neck pain Integumentary/Breasts: Skin/Breast: Denies dry skin Neurologic: Reports Normal hearing present, Denies headache(s) and Denies weakness Psychiatric: Psychiatric: Denies anxiety Endocrine: Endocrine: Denies change in body appearance Hematologic/Lymphatic: Hematologic/Lymphatic: Denies easy bleeding Allergic/Immunologic: Allergic/Immunologic: Denies urticaria PMFSH Past Medical History Medical History Asthma Dementia Surgical History Surgical History History of appendectomy History of cholecystectomy History of hysterectomy S/P gastric surgery . Exploratory laparotomy 2. Repair of perforated gastric ulcer with omental Jaison patch 3. Biopsy of gastric ulcer Family History Family History Unknown No pertinent family history Social History Social History Social History: The patient lives with her daughter. She was to a little and is now . She has 4 children. Her daughter is a durable power bolt maker for healthcare. The patient is a full code. 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 She does not use any alcohol marijuana or illicit drugs. Smoking status: Never smoker Alcohol intake: never Substance use: never Living arrangements: with family Additional living arrangements comments: Lives at home with daughter Gender identity (if verbalized by the patient): Female Sexual Orientation (if Verbalized by the Patient): Straight or Heterosexual Spiritual care concerns: No Meds Home Medications and Allergies Home Medications Medication Instructions Recorded Confirmed Type albuterol sulfate [ProAir HFA] 2 puff INHALATION QID PRN 04/22/21 08/01/21 History cetirizine 10 mg PO HS PRN 04/22/21 08/01/21 History donepezil 10 mg PO HS 04/22/21 08/01/21 History quetiapine 50 mg PO HS 04/22/21 08/01/21 History docusate sodium 100 mg PO DAILY 04/23/21 08/01/21 History xnooxsxm-gpwucbd-ztif-lutein 1 tablet PO HS 04/23/21 08/01/21 History pantoprazole 40 mg PO Q12HR 30 Days #60 tablet 04/28/21 08/01/21 Rx cholecalciferol (vitamin D3) 25 mcg PO HS 08/01/21 08/01/21 History [Vitamin D3] escitalopram oxalate 5 mg PO QAM 08/01/21 08/01/21 History melatonin 10 mg PO HS 08/01/21 08/01/21 History multivitamin with minerals 1 tablet PO DAILY 08/01/21 08/01/21 History [Hair,Skin and Nails] Allergies Allergy/AdvReac Type Severity Reaction Status Date / Time Penicillins Allergy Mild Rash Verified 08/13/21 10:34 Sulfa (Sulfonamide Allergy Mild Rash Verified 08/13/21 10:34 Antibiotics) Vital Signs Vital Signs - 24 hr 08/13/21 10:36 Temperature 96.8 F L Pulse Rate 78 Respiratory Rate 18 Blood Pressure 99/42 L Pulse Oximetry 97 Exam Const: General: comfortable and no acute distress HENMT: General nose exam: Normal nares prese
[2021-08-13] MEDS: BENZOCAINE (*SP) 60 ML SPRAY CAN (HURRICAINE) 1 SPRAY MUCOUS MEM (11:14)
[2021-08-13 11:26] VITALS: BP 98/53; PULSE 77; RESP 21; O2SAT 99
[2021-08-13 11:36] VITALS: BP 98/58; PULSE 64; RESP 19; O2SAT 99
[2021-08-13 11:46] VITALS: BP 102/57; PULSE 56; RESP 18; O2SAT 98
== END 2021-08-13 11:57 | disposition home or self-care (01) ==
PROVIDERS: PCP Nurse Practitioner Family; Visit Provider Internal Medicine Gastroenterology
PROC: 0DJ08ZZ Inspection of Upper Intestinal Tract, Via Natural or Artificial Opening Endoscopic (ICD-10-PCS; CPT 43235; principal; 2021-08-13 11:30)
DX: Z09 Encounter for follow-up examination after completed treatment for conditions other than malignant neoplasm (principal); K44.9 Diaphragmatic hernia without obstruction or gangrene; Z87.11 Personal history of peptic ulcer disease; Z98.84 Bariatric surgery status; J45.909 Unspecified asthma, uncomplicated; F03.90 Unspecified dementia, unspecified severity, without behavioral disturbance, psychotic disturbance, mood disturbance, and anxiety; Z79.51 Long term (current) use of inhaled steroids
CPT/HCPCS: 43239; 88305; J2704; J7120

== ENCOUNTER 2022-04-02 23:17 | Emergency (ER) | payer MEDICARE, OTHER, SELFPAY ==
[2022-04-02 23:41] VITALS: BP 121/53; PULSE 75; RESP 18; TEMP 36.5; O2SAT 98
[2022-04-03 01:17] VITALS: BP 125/55; PULSE 63; TEMP 37.3; O2SAT 97
== END 2022-04-03 03:14 | disposition left against medical advice (07) ==
LOC: ANHED 04-03 03:08
PROVIDERS: PCP Nurse Practitioner Family
DX: Z04.3 Encounter for examination and observation following other accident (principal)
CPT/HCPCS: 99199

== ENCOUNTER 2022-11-16 15:59 | Emergency (ER) | payer MEDICARE, OTHER, SELFPAY ==
--- NOTE | ~2022-11-16 | CT_ITS ---
EXAMINATION: CT brain wo con DATE: 11/16/2022 18:12 INDICATION: unwitnessed fall . TECHNIQUE: Computed tomography (CT) of the head was performed without intravenous contrast. The mA wa s adjusted according to patient size. Iterative reconstruction technique was employed. The dose-lengt h product was 605.33 mGy-cm. COMPARISON: None. FINDINGS: No acute intracranial hemorrhage or extra-axial fluid collection. No hydrocephalus, mass, or herniation. No acute ischemic infarct. Unremarkable dural venous sinus attenuation. No acute osseous abnormality. The aerated spaces are clear. Moderate atrophy and chronic white matter change. Atherosclerotic intracranial calcification. Bilater al lens replacements. IMPRESSION: No acute intracranial process. Reviewed, dictated and finalized at location K. RDS ASSISTANT
--- NOTE | ~2022-11-16 | XR_ITS ---
EXAM: XR forearm LT 2V DATE: 11/16/2022 18:02 HISTORY: unwitnessed fall . COMPARISON: None available. FINDINGS: Decreased mineralization. No fracture or dislocation. No lytic or blastic lesion. Joint sp aces are maintained. No erosion or periosteal change. Soft tissues within normal limits. IMPRESSION: No acute osseous finding in the left forearm. Reviewed, dictated and finalized at location K. D SERGEANT
--- NOTE | ~2022-11-16 | XR_ITS ---
EXAM: XR humerus LT DATE: 11/16/2022 18:02 HISTORY: unwitnessed fall . COMPARISON: None available. FINDINGS: Decreased mineralization. No fracture or dislocation. No lytic or blastic lesion. Moderate left glenohumeral arthritis. No erosion or periosteal change. Soft tissues within normal limits. IMPRESSION: No acute osseous finding in the left humerus. Reviewed, dictated and finalized at location K. WAY SWITCH OPERATOR
--- NOTE | ~2022-11-16 | XR_ITS ---
EXAM: XR hip LT 2V w AP pelvis DATE: 11/16/2022 18:02 HISTORY: unwitnessed fall . COMPARISON: None available. FINDINGS: Normal mineralization. No fracture or dislocation. No lytic or blastic lesion. Scattered d egenerative changes. No erosion or periosteal change. Soft tissues within normal limits. IMPRESSION: No acute osseous finding in the pelvis or left hip. Reviewed, dictated and finalized at location K. TRUCK DRIVER
--- NOTE | ~2022-11-16 | CT_ITS ---
EXAMINATION: CT cervical spine wo con DATE: 11/16/2022 18:12 INDICATION: unwitnessed fall TECHNIQUE: Computed tomography (CT) of the cervical spine was performed without intravenous contrast. Automated exposure control and iterative reconstruction technique were employed. The dose-length pro duct was 353.07 mGy-cm. COMPARISON: None. FINDINGS: Vertebral Body Alignment: Intact. Reversal of the normal cervical lordosis centered at C4. Craniocervical and atlantoaxial alignment: Moderate degenerative change. Alignment intact. Osseous structures/fracture: No evidence of a lytic or blastic process in the visualized spine. No e vidence of acute fracture. . Cervical soft tissues: The paraspinal soft tissues planes are maintained. Atherosclerotic calcificati ons at the arch. Interstitial and senescent changes in the lung apices. Degenerative changes: Degenerative changes, without severe central canal narrowing. Severe right neur al foraminal narrowing at C3-4 and C4-5. IMPRESSION: No acute fracture or traumatic malalignment in the cervical spine Reviewed, dictated and finalized at location K. CLUB WEIGHTER
[2022-11-16 16:30] VITALS: BP 99/54; PULSE 90; RESP 16; TEMP 36.4; O2SAT 94
== END 2022-11-16 16:40 | disposition left against medical advice (07) ==
PROVIDERS: PCP Nurse Practitioner Family
DX: S79.912A Unspecified injury of left hip, initial encounter (principal); W19.XXXA Unspecified fall, initial encounter
CPT/HCPCS: 70450; 72125; 73060; 73090; 73502; 99199

== ENCOUNTER 2023-02-23 10:30 | Emergency (ER) | payer MEDICARE, OTHER, SELFPAY ==
--- NOTE | ~2023-02-23 | XR_ITS ---
EXAMINATION: XR chest 2V DATE: 02/23/2023 11:42 INDICATION: Syncope TECHNIQUE: frontal and lateral views of the chest were obtained. COMPARISON: None FINDINGS: Scattered opacities primarily peripherally in the right lung and in the left lower lung zone. No pleu ral effusion or pneumothorax. Cardiomegaly cholecystectomy clips in right upper quadrant. Severe oste oarthritis at the bilateral glenohumeral joints. IMPRESSION: 1. Bilateral lung disease which in the acute setting could represent pulmonary edema or pneumonia or more chronic interstitial lung disease. 2. Cardiomegaly. Reviewed, dictated and finalized at location A.
--- NOTE | 2023-02-23 10:26 | ED.SYNCOPE ---
HPI - Syncope General Chief Complaint: Syncope Stated Complaint: syncopal episode Source: patient and EMS Mode of arrival: EMS Limitations: no limitations History of Present Illness HPI narrative: Patient is an 82-year-old female presenting to the emergency department for evaluation following syncopal event. Patient reportedly went to take a hot shower this morning, when she stood up suddenly, causing her to feel lightheaded and nauseated. Patient then lost consciousness in the shower for short period of time. Patient was having a shower with assistance. No head trauma. She is able to be lowered to the ground out of the shower. Patient had a very short loss of consciousness and then awakened and was able to ambulate to her couch. At the time of my assessment, patient denies any acute complaints. She reports she has a history of low blood pressure. She is oriented to person, not to place or time which is her baseline. She can state her birthday. She does not really recall the events of this morning. She denies headache, neck pain, chest pain, shortness of breath, abdominal pain, vomiting. She denies focal weakness or numbness. No recent illnesses or medication changes. Patient resides at [facility]. Related Data Home Medications Medication Instructions Recorded Confirmed albuterol sulfate 90 mcg/actuation 2 puff inhalation QID PRN 04/22/21 08/01/21 aerosol inhaler (ProAir HFA) shortness of breath cetirizine 10 mg tablet 10 mg PO HS PRN runny nose 04/22/21 08/01/21 donepezil 10 mg tablet 10 mg PO HS 04/22/21 08/01/21 quetiapine 25 mg tablet 50 mg PO HS 04/22/21 08/01/21 docusate sodium 100 mg capsule 100 mg PO DAILY 04/23/21 08/01/21 kqhrmxod-fldyeiq-avic-lutein tablet 1 tablet PO HS 04/23/21 08/01/21 cholecalciferol (vitamin D3) 25 25 mcg PO HS 08/01/21 08/01/21 mcg (1,000 unit) capsule (Vitamin D3) escitalopram oxalate 5 mg tablet 5 mg PO QAM 08/01/21 08/01/21 melatonin 10 mg tablet 10 mg PO HS 08/01/21 08/01/21 multivitamin with minerals 1 tablet PO DAILY 08/01/21 08/01/21 (Hair,Skin and Nails tablet) Allergies Allergy/AdvReac Type Severity Reaction Status Date / Time Penicillins Allergy Mild Rash Verified 02/23/23 11:09 Sulfa (Sulfonamide Allergy Mild Rash Verified 02/23/23 11:09 Antibiotics) Review of Systems Review of Systems: CONSTITUTIONAL: Denies fever, chills, or sweats. EYES: Denies visual changes, redness, or discharge. ENT: Denies rhinorrhea, congestion, sore throat, or otalgia. CARDIOVASCULAR: Denies chest pain, palpitations, or edema. RESPIRATORY: Denies cough or dyspnea. GASTROINTESTINAL: Denies abdominal pain, nausea without vomiting GENITOURINARY: Denies dysuria or hematuria. SKIN: Denies rash or itching. MUSCULOSKELETAL: Denies back pain, joint pain, or myalgia. NEUROLOGIC: Denies headache, numbness, or weakness. Denies lightheadedness. PMFSH Past Medical History Medical History Asthma Dementia Surgical History Surgical History History of appendectomy History of cholecystectomy History of hysterectomy S/P gastric surgery . Exploratory laparotomy 2. Repair of perforated gastric ulcer with omental Jaison patch 3. Biopsy of gastric ulcer Family History Family History Unknown No pertinent family history Social History Social History Social History: The patient lives with her daughter. She was to a little and is now . She has 4 children. Her daughter is a durable power transactional attorney for healthcare. The patient is a full code. 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 She does not use any alcohol marijuana or illicit drugs. Smoking status: Never smoker Alcohol intake: never Subs
[2023-02-23 10:33] VITALS: BP 98/54; PULSE 67; RESP 15; TEMP 36.6; O2SAT 100
--- NOTE | 2023-02-23 10:36 | ECG_ITS ---
Measurements Intervals [place] Rate: 60 P: 30 MA: 177 QRS: 43 QRSD: 77 T: 42 QT: 418 QTc: 418 Interpretive Statements SINUS RHYTHM COMPARED TO ECG 04/25/2021 08:45:16 NO SIGNIFICANT CHANGES Electronically Signed On 02-23-2023 14:41:58 CDT by Maral Robertson M.D.
[2023-02-23 11:12] LABS: Basophils Percent Auto 0.5 % (0.2-1.2); Eosinophils Absolute Auto 0.1 K/mm3 (0-0.3); Hematocrit 44.8 % (37.0-47.0); Hemoglobin 14.4 g/dL (12.0-15.0); Immature Granulocyte Absolute 0.01 K/mm3 (0.00-0.031); Immature Granulocyte Percent A 0.2 % (0-0.5); Lymphocytes Absolute Auto 1.09 K/mm3 (0.9-3.2); Lymphocytes Percent Auto 17.5 % (18.3-44.2); Mean Corpuscular HGB Conc 32.1 g/dl (32-36); Mean Corpuscular Hemoglobin 27.8 pg (26-34); Mean Corpuscular Volume 86.5 fl (80-100); Mean Platelet Volume 9.5 fl (7.4-10.4); Monocytes Absolute Auto 0.5 K/mm3 (0.1-0.6); Monocytes Percent Auto 8.2 % (2.6-8.5); Neutrophils Absolute Auto 4.5 K/mm3 (1.3-6.7); Neutrophils Percent Auto 72.6 % (45.5-73.1); Platelet Count Result 225 k/mm3 (150-375); Red Blood Count 5.18 M/mm3 (4.2-5.4); Red Cell Distribution Width 15.1 % (11.5-14.5); White Blood Count 6.2 K/mm3 (4.5-10.0)
[2023-02-23 11:26] LABS: Appearance Urine Clear (Clear); Bilirubin Urine Negative (Negative); Blood Urine Negative (Negative); Color Urine Yellow (Yellow); Glucose Urine UA Negative (Negative); Ketones Urine Negative (Negative); Leukocyte Esterase Ur Negative LEU/UL (Negative); Nitrate Urine Negative (Negative); Protein Urine Negative (Negative); Specific Grav Ur 1.024 (1.001-1.035); Urobilinogen Urine 0.2 mg/dL (<2.0)
[2023-02-23 11:34] LABS: Add Urine Microscopic? NO
[2023-02-23 11:36] LABS: INR 1.1; Prothrombin Time 13.6 Seconds (11.1-14.7)
[2023-02-23 11:37] LABS: Partial Thromboplastin Time 24.6 SECONDS (22.3-36.8)
[2023-02-23 11:40] VITALS: BP 96/53; PULSE 63
[2023-02-23 11:50] VITALS: BP 107/54; PULSE 64
[2023-02-23 11:53] LABS: Alanine Aminotransferase 18 U/L (6-35); Albumin Level 3.8 g/dL (3.5-5.1); Alkaline Phosphatase 66 U/L (38-126); Anion Gap 4 mmol/L (8-16); Aspartate Amino Transferase 24 U/L (14-36); Bilirubin,Total 0.8 mg/dL (0.2-1.3); Blood Urea Nitrogen 16 mg/dL (7-17); Calcium 8.9 mg/dL (8.4-10.2); Carbon Dioxide 29 mmol/L (22-30); Chloride 104 mmol/L (98-107); Estimated CRCL calculation 43 ml/min; Estimated Glomerular Filt Rate > 60; Glucose 100 mg/dL (65-110); Potassium 4.2 mmol/L (3.4-5.0); Sodium 137 mmol/L (137-145)
[2023-02-23 11:58] VITALS: BP 102/56; PULSE 83
[2023-02-23 12:05] LABS: Troponin I < 0.012 ng/mL (0.000-0.034)
== END 2023-02-23 13:40 | disposition home or self-care (01) ==
PROVIDERS: Emergency Provider Emergency Medicine; PCP Nurse Practitioner Family
DX: R55 Syncope and collapse (principal); J45.909 Unspecified asthma, uncomplicated; F03.90 Unspecified dementia, unspecified severity, without behavioral disturbance, psychotic disturbance, mood disturbance, and anxiety
CPT/HCPCS: 36415; 71046; 80053; 81003; 83605; 84484; 85025; 85610; 85730; 93005; 99284

== ENCOUNTER 2024-08-18 13:15 | Emergency (ER) | payer MEDICARE, OTHER, SELFPAY ==
--- NOTE | ~2024-08-18 | CT_ITS ---
CT brain wo con Ordering provider: Britany Sanchez MD History: 84 years Female with . AMS, seizure vs syncope? . Comparison: November 16, 2022 Technique: CT of the head without contrast. Radiation reduction technique utilized. The dose-length product was 605.33 mGy-cm. FINDINGS: BRAIN PARENCHYMA AND CSF SPACES: Mild leukoaraiosis and diffuse cortical atrophy. Mild atheromatous d isease. No midline shift, mass effect or hemorrhage. The brain parenchyma and CSF spaces are otherwi se normal. VISUALIZED PARANASAL SINUSES: Well aerated. MASTOIDS: Well aerated. BONES: The bones appear intact. SOFT TISSUES: Visualized nasopharynx is normal. Superficial soft tissues are normal. IMPRESSION: No acute intracranial findings. Reviewed, dictated and finalized at location A.
--- NOTE | ~2024-08-18 | CT_ITS ---
CT abdomen pelvis w con Ordering provider: Britany Sanchez MD History: 84 years Female with . lower ab pain, AMS . Comparison: April 22, 2021 Technique: CT abdomen and pelvis with IV and without oral contrast. Automated exposure control and it erative reconstruction technique were employed. The dose-length product was 834.26 mGy-cm. 100 mL Omn ipaque 350 was given IV. Findings: VISUALIZED LOWER CHEST: Interstitial changes seen bilaterally suggestive of fibrotic changes. Superim posed pneumonitis cannot be excluded. Dependent atelectatic changes. UPPER ABDOMINAL ORGANS: Liver: Normal. Gallbladder: Status post cholecystectomy. Spleen: Normal. Stomach/duodenum: Slightly thickened wall of the stomach. Clinical correlation advised. Pancreas: Normal. Slightly prominent pancreatic duct. Adrenals: Normal. Kidneys: Minimal fullness of the renal pelvis bilaterally. Slight thickening of the junction of the r ight renal pelvis with the ureter is noted. Follow-up advised. No dilatation of the ureters is seen. No ureteric stones. Stone in the right kidney midpole measuring 5 mm. PELVIC ORGANS: The bladder is underfilled with slightly thickened wall. Clinical correlation advised. . BOWEL AND MESENTERY: Colon: No evidence of diverticulitis. Fecal material seen in the right side of the colon and in the d istal small bowel. Appendix is not demonstrated. Small Bowel: Normal. No obstruction. Peritoneum/mesentery: No free air or free fluid. No mesenteric lymphadenopathy. RETROPERITONEUM: Mild atheromatous disease of the abdominal aorta. No retroperitoneal lymphadenopat hy. MUSCULOSKELETAL: Superficial soft tissues: The superficial soft tissues are normal. Bones: Age appropriate degenerative changes of the spine. Bilateral sacroiliitis. IMPRESSION: 1. No evidence of appendicitis, diverticulitis or intestinal obstruction. 2. Right renal stone. Bilateral renal pelvis fullness may indicate pelviureteric junction. Slight th ickening of the junction of the right renal pelvis with degenerative is seen. Follow-up advised. 3. Slightly prominent pancreatic duct. Follow-up advised. Reviewed, dictated and finalized at location A. IMPRESSION: 1. No evidence of appendicitis, diverticulitis or intestinal obstruction. 2. Right renal stone. Bilateral renal pelvis fullness may indicate pelviureter ic junction. Slight thickening of the junction of the right renal pelvis with d egenerative is seen. Follow-up advised. 3. Slightly prominent pancreatic duct. Follow-up advised.
--- NOTE | ~2024-08-18 | XR_ITS ---
XR chest 1V Ordering provider: Britany Sanchez MD History: 84 years Female with . syncope, AMS . Comparison: February 23, 2023 FINDINGS: MEDIASTINUM: The cardiac silhouette is not enlarged. LUNGS: No , effusions or pneumothorax. Bilateral interstitial thickening suggestive of fibrotic bingham es versus pneumonitis follow-up advised. OTHER: No free air under the diaphragm. Bilateral shoulder osteoarthritic changes. Degenerative changes of the spine. IMPRESSION: Bilateral interstitial changes suggestive of fibrotic changes versus pneumonitis. Clinical correlatio n advised. Reviewed, dictated and finalized at location A. IMPRESSION: Bilateral interstitial changes suggestive of fibrotic changes versus pneumoniti s. Clinical correlation advised.
[2024-08-18 13:31] VITALS: BP 100/52; PULSE 53; RESP 16; O2SAT 100
[2024-08-18 13:48] VITALS: BP 98/63; PULSE 54; RESP 14; O2SAT 98
[2024-08-18 13:49] VITALS: O2SAT 100
--- NOTE | 2024-08-18 14:44 | ECG_ITS ---
Test Date: 2024-08-18 13:19:51 Measurements Intervals [place] Rate: 62 P: 39 NE: 199 QRS: 26 QRSD: 77 T: 40 QT: 408 QTc: 415 Interpretive Statements SINUS RHYTHM LOW QRS VOLTAGE OTHERWISE UNREMARKABLE ECG No previous ECG available for comparison Electronically Signed On 08-19-2024 09:39:00 CDT by Cosmo Agustin M.D.
--- NOTE | 2024-08-18 14:44 | ED.AMS ---
HPI - Altered Mental Status General Chief Complaint: Altered Mental Status Stated Complaint: ams Time Seen by Provider: 08/18/24 14:14 History of Present Illness HPI narrative: 84-year-old female with a history of Alzheimer's presenting with an episode of altered mental status. Patient's daughter is at bedside and helps with the history. Patient was reportedly seen by a current memory cares staff having an unresponsive episode with possible seizure activity. Sounds like it lasted for about 5 seconds and patient returned to baseline. Currently, patient complains of lower abdominal pain. No other complaints. Her alert and oriented x1 which is baseline. Related Data Home Medications Medication Instructions Recorded Confirmed albuterol sulfate 90 mcg/actuation 2 puff inhalation QID PRN 04/22/21 08/01/21 aerosol inhaler (ProAir HFA) shortness of breath cetirizine 10 mg tablet 10 mg PO HS PRN runny nose 04/22/21 08/01/21 donepezil 10 mg tablet 10 mg PO HS 04/22/21 08/01/21 quetiapine 25 mg tablet 50 mg PO HS 04/22/21 08/01/21 docusate sodium 100 mg capsule 100 mg PO DAILY 04/23/21 08/01/21 imfncjoy-mpnldxe-zbmk-lutein tablet 1 tablet PO HS 04/23/21 08/01/21 cholecalciferol (vitamin D3) 25 25 mcg PO HS 08/01/21 08/01/21 mcg (1,000 unit) capsule (Vitamin D3) escitalopram oxalate 5 mg tablet 5 mg PO QAM 08/01/21 08/01/21 melatonin 10 mg tablet 10 mg PO HS 08/01/21 08/01/21 multivitamin with minerals 1 tablet PO DAILY 08/01/21 08/01/21 (Hair,Skin and Nails tablet) Allergies Allergy/AdvReac Type Severity Reaction Status Date / Time Penicillins Allergy Mild Rash Verified 06/20/24 15:39 Sulfa (Sulfonamide Allergy Mild Rash Verified 06/20/24 15:39 Antibiotics) Review of Systems Review of Systems: All systems reviewed & are unremarkable except as noted in HPI and below PMFSH Past Medical History Medical History Asthma Dementia Surgical History Surgical History History of appendectomy History of cholecystectomy History of hysterectomy S/P gastric surgery . Exploratory laparotomy 2. Repair of perforated gastric ulcer with omental Jaison patch 3. Biopsy of gastric ulcer Family History Family History Unknown No pertinent family history Social History Social History Social History: The patient lives with her daughter. She was to a little and is now . She has 4 children. Her daughter is a durable power assistant attorney general for healthcare. The patient is a full code. 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 She does not use any alcohol marijuana or illicit drugs. Smoking status: Never smoker Alcohol intake: never Substance use: never Living arrangements: with family Additional living arrangements comments: Lives at home with daughter Gender identity (if verbalized by the patient): Female Sexual Orientation (if Verbalized by the Patient): Straight or Heterosexual Spiritual care concerns: No Exam Narrative: GENERAL: Nontoxic, no acute distress, pleasantly demented HEAD: Normocephalic, atraumatic. EYES: PERRLA and EOMI. ENT: Mucous membranes tacky NECK: Supple. CHEST: Clear to auscultation. No respiratory distress. HEART: Regular rate and rhythm ABDOMEN: Soft, + left lower quadrant and suprapubic tenderness without guarding or rebound EXTREMITIES: Normal range of motion SKIN: Warm, dry, no rash. NEURO: Alert and oriented x1. moves all extremities spontaneously PSYCH: Normal mood and affect. Course Vital Signs Vital signs: Vital Signs Pulse Rate 53 L 08/18/24 13:31 Respiratory Rate 16 08/18/24 13:31 Blood Pressure 100/52 L 08/18/24 13:31 Pulse Oximetry 100 08/18/24
[2024-08-18] MEDS: SODIUM CHLORIDE 0.9% IV 1,000 ML 999 ML IV CONT (14:51)
--- NOTE | 2024-08-18 14:55 | ECG_ITS ---
Test Date: 2024-08-18 17:51:11 Measurements Intervals [place] Rate: 59 P: 35 WI: 188 QRS: 4 QRSD: 80 T: 18 QT: 439 QTc: 437 Interpretive Statements SINUS BRADYCARDIA WITH OCCASIONAL SUPRAVENTRICULAR PREMATURE COMPLEXES OTHERWISE NORMAL ECG Compared to ECG 08/18/2024 13:19:51 NO SIGNIFICANT CHANGE Electronically Signed On 08-19-2024 09:43:24 CDT by Cosmo Agustin M.D.
[2024-08-18 15:06] VITALS: BP 103/49; PULSE 90; RESP 15; O2SAT 100
[2024-08-18 15:12] LABS: Basophils Percent Auto 0.7 % (0.2-1.2); Eosinophils Absolute Auto 0.1 K/mm3 (0-0.3); Eosinophils Percent Auto 1.4 % (0-4.4); Hematocrit 39.9 % (37.0-47.0); Hemoglobin 12.9 g/dL (12.0-15.0); Immature Granulocyte Absolute 0.02 K/mm3 (0.00-0.031); Immature Granulocyte Percent A 0.3 % (0-0.5); Lymphocytes Absolute Auto 0.89 K/mm3 (0.9-3.2); Lymphocytes Percent Auto 15.2 % (18.3-44.2); Mean Corpuscular HGB Conc 32.3 g/dl (32-36); Mean Corpuscular Hemoglobin 28.3 pg (26-34); Mean Corpuscular Volume 87.5 fl (80-100); Mean Platelet Volume 9.9 fl (7.4-10.4); Monocytes Absolute Auto 0.6 K/mm3 (0.1-0.6); Monocytes Percent Auto 9.6 % (2.6-8.5); Neutrophils Absolute Auto 4.3 K/mm3 (1.3-6.7); Neutrophils Percent Auto 72.8 % (45.5-73.1); Platelet Count Result 216 k/mm3 (150-375); Red Blood Count 4.56 M/mm3 (4.2-5.4); Red Cell Distribution Width 14.7 % (11.5-14.5); White Blood Count 5.8 K/mm3 (4.5-10.0)
[2024-08-18 15:22] LABS: Lactic Acid Reflex 1.1 mmol/L (0.7-2.0)
[2024-08-18 15:23] LABS: Alanine Aminotransferase 19 U/L (6-35); Albumin Level 3.6 g/dL (3.5-5.1); Alkaline Phosphatase 62 U/L (38-126); Anion Gap 4 mmol/L (4-12); Aspartate Amino Transferase 27 U/L (14-36); Bilirubin,Total 0.4 mg/dL (0.2-1.3); Blood Urea Nitrogen 11 mg/dL (7-17); Calcium 8.9 mg/dL (8.4-10.2); Carbon Dioxide 31 mmol/L (22-30); Chloride 102 mmol/L (98-107); Estimated CRCL calculation 38 ml/min; Estimated Glomerular Filt Rate > 60; Glucose 107 mg/dL (65-110); INR 1.2; Lipase 54 U/L (23-300); Magnesium 2.2 mg/dL (1.6-2.3); Partial Thromboplastin Time 24.9 Seconds (22.3-36.8); Potassium 4.3 mmol/L (3.4-5.0); Prothrombin Time 15.1 Seconds (11.1-14.7); Sodium 137 mmol/L (137-145)
[2024-08-18 15:34] LABS: Troponin I < 0.012 ng/mL (0.000-0.034)
[2024-08-18 15:45] LABS: Add Urine Microscopic? YES; Appearance Urine Clear (Clear); Bacteria Urine None Seen /hpf; Bilirubin Urine Negative (Negative); Blood Urine Negative (Negative); Color Urine Yellow (Yellow); Glucose Urine UA Negative (Negative); Ketones Urine Negative (Negative); Leukocyte Esterase Ur Trace LEU/UL (Negative); Need Manual Microscopic Reviewed; Nitrate Urine Negative (Negative); Non Pathogenic Casts 0-2; Protein Urine Negative (Negative); Specific Grav Ur 1.019 (1.001-1.035); Squamous Epithelial Cell Urine None Seen /hpf (Few); WBC Urine 0-5 /hpf (0-3); pH Urine 7.5 (5.0-9.0)
[2024-08-18 15:49] LABS: Influenza A QL RT-PCR Negative (Negative); Influenza B QL RT-PCR Negative (Negative); SARS-CoV-2 RNA PCR Negative (Negative)
[2024-08-18 16:38] VITALS: BP 99/54; PULSE 72; RESP 16; O2SAT 100
[2024-08-18 18:36] LABS: Troponin I < 0.012 ng/mL (0.000-0.034)
[2024-08-18 18:46] VITALS: BP 96/64; PULSE 66; RESP 18; TEMP 36.6; O2SAT 99
== END 2024-08-18 19:10 | disposition home or self-care (01) ==
PROVIDERS: Emergency Provider Emergency Medicine
DX: R55 Syncope and collapse (principal); Z20.822 Contact with and (suspected) exposure to COVID-19; G30.9 Alzheimer's disease, unspecified; F02.80 Dementia in other diseases classified elsewhere, unspecified severity, without behavioral disturbance, psychotic disturbance, mood disturbance, and anxiety; J45.909 Unspecified asthma, uncomplicated; Z90.49 Acquired absence of other specified parts of digestive tract; Z90.710 Acquired absence of both cervix and uterus; Z79.899 Other long term (current) drug therapy
CPT/HCPCS: 36415; 70450; 71045; 74177; 80053; 81001; 83605; 83690; 83735; 84484; 85025; 85610; 85730; 87636; 93005; 96360; 99284; J7030; Q9967

== ENCOUNTER 2024-12-26 11:22 | Emergency (ER) | payer MEDICARE, OTHER, SELFPAY ==
[2024-12-26] VITALS (9 sets, daily range): BP systolic 102–112; BP diastolic 47–87; PULSE 60–80; RESP 16–21; TEMP 36.5–37.2; O2SAT 95–100
--- NOTE | ~2024-12-26 | XR_ITS ---
CHEST RADIOGRAPH CLINICAL HISTORY: weakness . COMPARISON: 08/18/2024 TECHNIQUE: Single portable view of the chest. FINDINGS The cardiomediastinal silhouette is unremarkable. Coarse interstitial lung markings detected bilaterally, likely chronic. Traction bronchiectasis and biapical scarring is also detected. IMPRESSION: No focal infiltrate or effusion. Reviewed, dictated and finalized at location A. X ADMIN
--- NOTE | 2024-12-26 11:45 | PC.NURSE ---
Pt. called x1 for triage with no reply in WR>
--- OUTSIDE RECORDS SUMMARY | 2024-12-26 13:32 | XMS_ITS | Encounter Summary ---
Author Organization [facility] Address [address] [place] [address] Care Team Providers Care Intensive Care Unit Nurse Name Role Phone LeidysukhdeepYuliana [facility] Primary Care Provider Terrance Urias MD Primary Care Provider Encounter Details Date Type Department Care Team (Late Contact Info) Description 04/28/2023 MyChart Message Enc [facility] [address] [place] [phone] [employer], [facility] Provider Air Quality Message Social History Tobacco Use Types Packs/Day Years Used Date Smoking Tobacco: Former Cigarettes 1 3 0 11/01/1957 - 11/01/1960 Smokeless Tobacco: Never Alcohol Use Standard Drinks/Week Comments Yes 0 (1 standard drink = 0.6 oz pur e alcohol) rarely PHQ-2 Answer Date Recorded PHQ-2 Score - If the patient scores above 3, please move on to questions 3-9 0 06/13/2020 Comments No Sex and Gender Information Value Date Recorded Sex Assigned at Not on file Legal Sex Female 7:46 AM CDT Gender Identity Not on file Sexual Orientation Not on file documented as of this encounter Plan of Treatment Upcoming Encounters Date Type Department Care Team (Late Contact Info) Description 02/06/2025 3:00 PM CDT Office Visit [facility] Family Medicine [address] [address] Terrance Gallegos MD [address] [place] [address]. [place] [address] documented as of this encounter Visit Diagnoses Not on filedocumented in this encounter Care Teams Intensive Care Unit Nurse Relationship Specialty Start Date End Date [facility] PCP - General Nurse Practitioner Family 08/17/18 4 Terrance Gallegos MD [address] [facility] [place] [phone] PCP - General FAMILY PRACTICE 07/02/24 documented as of this encounter
--- OUTSIDE RECORDS SUMMARY | 2024-12-26 13:32 | XMS_ITS | Encounter Summary ---
Author Organization [facility] Address [address] [place] [address] Care Team Providers Care Materials Scientist Name Role Phone Yuliana [facility]ales [facility] Primary Care Provider Terrance Urias MD Primary Care Provider [phone] Encounter Details Date Type Department Care Team (Late Contact Info) Description 06/20/2021 Twitmusichart Message Enc [address] [address] Yuliana Rosales [facility] RE: bone density Social History Tobacco Use Types Packs/Day Years [...] on file Sexual Orientation Not on file COVID-19 Exposure Response Date Recorded In the last month, have you been in contact with someone who was confirmed or suspected to have Coronavirus / COVID-19? No / Unsure 06/19/2021 2:37 PM CDT documented as of this encounter Plan of Treatment Upcoming Encounters Date Type Department Care Team (Late Contact Info) Description 02/06/2025 3:00 PM CDT [facility] [address] [place] [address] Terrance Gallegos MD [facility] [place] [address] documented as of this encounter Visit Diagnoses Not on filedocumented in this encounter Care Teams Materials Scientist Relationship Specialty Start Date End Date [facility] - General Nurse Practitioner Family 08/17/18 4 Terrance Gallegos MD [facility] [place] [address] PCP - General FAMILY PRACTICE 07/02/24 documented as of this encounter
--- OUTSIDE RECORDS SUMMARY | 2024-12-26 13:32 | XMS_ITS | Clinical Summary ---
Author Organization [facility] Address [facility] [place] [address] Care Team Providers Care Inspector And Mender Name Role Phone Terrance Guadalupe MD Primary Care Provider [phone] Allergies Active Allergy Reactions Criticality Noted Date Comments Food Anaphylaxis High 08/16/2018 ALL PEPPERS Penicillin G Rash Low 07/28/2018 Penicillins Unknown Low 08/16/2018 Sulfa Antibiotics Rash,Unknown Low 07/28/2018 Medications cetirizine 10 MG tablet Take 1 tablet (10 mg total) by mouth daily. Active acetaminophen 500 MG tablet Take 1 tablet (500 mg total) by mouth every 6 (six) hours as needed for Pain. Active Docusate Sodium 100 MG TabIndications:Co nstipation Take 100 mg by mouth daily. 30 tablet 1 Active vitamin D3, cholecalciferol, 1000 UNIT Tab tabletIndications :Vitamin D deficiency Take 1 tablet (1,000 Units total) by mouth daily. 30 tablet 1 1 Active fluticasone propionate 50 MCG/ACT nasal sprayIndications: Mild asthma without complication, unspecified whether persistent (HHS/HCC),Allergi es 1 spray by Nasal route daily. 16 g 1 1 Active escitalopram (LEXAPRO) 10 MG tablet Take 2 tablets (20 mg total) by mouth daily. 2 Active Multiple Vitamins-Minerals (CENTRUM SILVER ULTRA WOMENS) Tab Take 1 tablet by mouth daily. Active donepezil (ARICEPT) 10 MG Tab Take 1 tablet (10 mg total) by mouth daily. 2 Active QUEtiapine (SEROQUEL) 25 MG tablet Take 1 tablet (25 mg total) by mouth daily as needed. 60 tablet 3 Active pantoprazole EC (PROTONIX) 40 MG tablet 1 tablet (40 mg total) daily. 3 Active albuterol sulfate HFA 108 (90 Base) MCG/ACT inhalerIndication s:Mild intermittent asthma without complication ([facility]/HCC) Inhale 2 puffs into the lungs every 6 (six) hours as needed for Wheezing or Shortness of breath. 18 g 5 4 Active Active Problems Problem Noted Date Diagnosed Date Acute cystitis without hematuria 09/27/2024 UTI symptoms 09/25/2024 Hyponatremia 08/23/2024 Urinary tract infection without hematuria, site unspecified 08/23/2024 Poor balance 08/08/2024 Weakness of both lower extremities 08/08/2024 Overweight (BMI 25.0-29.9) 08/08/2024 Primary localized osteoarthritis of left knee Osteopenia of left lower leg 07/12/2024 Arthralgia 03/05/2023 Low back pain 03/05/2023 Late onset Alzheimer's disea se without behavioral disturbance ([facility] H[facility]) 07/10/2020 Osteoarthritis of glenohumeral joint, right 12/03 Right shoulder pain, unspecified chronicity 12/03 Rotator cuff arthropathy, right 12/29/2019 Vitamin D deficiency 03/22/2019 Anxiety and depression 08/16/2018 Asthma ([facility]/HCC) 08/16/2018 Constipation 08/16/2018 Hyperlipidemia 08/16/2018 Memory change 08/16/2018 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 Resolved Problems Problem Noted Date Diagnosed Date Resolved Date Screening for malignant neoplasm of breast 08/16/2018 07/12/2020 Encounters Date Type Department Care Team Description 12/26/2024 Telephone [facility] Family Medicine - [address] [address] Terrance Guadalupe MD FYI 11/30/2024 Scan HEALTH INFO SR[facility]CS Scanned, [facility] 11/26/2024 Scan [facility] HEALTH INFO SRVCS Scanned, Doc Med Group 10/29/2024 Scan [facility] HEALTH INFO SRVCS Scanned, Doc Med Group 10/24/2024 Scan [facility] HEALTH INFO SRVCS Scanned, Doc Med Group 10/20/2024 Scan [facility] HEALTH INFO SR[facility]CS Scanned, Doc Med Group 09/27/2024 Orders Only [address] [address] Terrance Guadalupe MD 09/26/2024 Scan [facility] HEALTH INFO [facility]CS Scanned, Doc Med [facility] 09/25/2024 Scan [facility] HEALTH INFO [facility]CS Scanned, Doc Med Group 09/25/2024 Orders Only [address] [address] Terrance Guadalupe MD from Last 3 Months Immunizations Name Administration Dates Next Due Dtap (Generic) 04/25/2014 Fluzone High Dose - >Age 65 (Prefilled Syringe) 08/08/2021,09/28/2020,10/06/2019 Influenza (Generic) 07/30/2018,07/28/2018 Influenza Adult (Generic) 08/01/2023,08/05/2015 MODERNA COVID-19 (12+) MRNA, LNP-S, PF, 100 MCG/ 0.5 ML DOSE 01/09/2021,12/12/2020 Pneumococcal (Prevnar 20) 03/05/2023 Tdap (Generic) 04/25/2014 Zoster (Zostavax) 18437 Unt/0.65Ml 08/25/2007 Family History Medical History Relation Comments Colon Cancer Child colon polyps Child Asthma Father Prostate Cancer Father Asthma Mother Osteoarthritis Cancer Mother Colon Cancer Diabetes Mother Migraines Mother Miscarriages / Stillbirths Mother Relation Status Comments Child Father Mother Social History Tobacco Use Types Packs/Day Years Used Date Smoking Tobacco: Former Cigarettes 1 3 0 11/01/1957 - 11/01/1960 Passive Smoke Exposure: Past Smokeless Tobacco: Never Tobacco Cessation:Counseling Given: Yes Alcohol Use Standard Drinks/Week Comments Not Currently 0 (1 standard drink = 0.6 oz pur e alcohol) rarely PHQ-2 Answer Date Recorded Patient Health Questionnaire-2 Score 0 09/08/2024 Comments No Sex and Gender Information Value Date Recorded Sex Assigned at Not on file Legal Sex Female 7:46 AM CDT Gender Identity Not on file Sexual Orientation Not on file Last Filed Vital Signs Vital Sign Reading Time Taken Comments Blood Pressure 107/60 09/08/2024 1:23 PM DATABASE ADMINISTRATION ASSOCIATE Pulse 64 09/08/2024 1:23 PM DATABASE ADMINISTRATION ASSOCIATE Temperature 36.4 C (97.5 F) 09/08/2024 1:23 PM DATABASE ADMINISTRATION ASSOCIATE Respiratory Rate 14 09/08/2024 1:23 PM DATABASE ADMINISTRATION ASSOCIATE Oxygen Saturation 96% 09/08/2024 1:23 PM DATABASE ADMINISTRATION ASSOCIATE Inhaled Oxygen Concentration - - Weight 68 kg (150 lb) 09/08/2024 1:23 PM DATABASE ADMINISTRATION ASSOCIATE Height 160 cm (5' 3 ) 09/08/2024 1:23 PM DATABASE ADMINISTRATION ASSOCIATE Body Mass Index 26.57 09/08/2024 1:23 PM DATABASE ADMINISTRATION ASSOCIATE Plan of Treatment Upcoming Encounters Date Type Department Care Team (Late st Contact Info) Description 02/06/2025 3:00 PM CDT Office Visit [facility] Family Medicine - [place] [address] [place] [address] Terrance Guadalupe MD [address] [facility] [place] [address] Health Maintenance Due Date Last Done Comments Annual Medicare Wellness Visit 2005 Zoster Vaccines (2 of 3) 10/20/2007 08/25/2007 RSV Immunization or 60+ Years (1 - 1-dose 75+ series) 2015 DTaP, Tdap and Td Vaccines (3 - Td or Tdap) 04/25/2024 04/25/2014, 04/25/2014 COVID-19 Vaccine (3 - season) 2024 01/09/2021, 12/12/2020 Influenza Adult (#1) 2024 08/01/2023, 08/08/2021, 09/28/2020, Additional history exists PHQ-2 (Physician [place]) 11/01/2024 09/08/2024 Pneumococcal Vaccine: 65+ Years Completed 03/05/2023 Dexa Scan (General) Completed 09/20/2024 Meningococcal B Vaccine Aged Out No l onger eligible based on patient's age to complete this topic Meningococcal Vaccine Aged Out No kaz debra eligible based on patient's age to complete this topic RSV Immunizations Under 20 Months Aged Out No longer eligible based on patient's age to complete this topic Procedures Procedure Name Priority Date/Time Associated Diagnosis Comments BONE DENSITY/DEXA Routine 09/20/2024 2:3 0 PM DATABASE ADMINISTRATION ASSOCIATE Osteopenia of left lower leg from Last 3 Months or Most Recently Relevant to Health Maintenance Results * BONE DENSITY/DEXA (09/20/2024 2:30 PM DATABASE ADMINISTRATION ASSOCIATE) Anatomical Region Laterality Modality Bone Mammography 09/20/2024 2:47 PM DATABASE ADMINISTRATION ASSOCIATE Impressions 09/20/2024 2:48 PM DATABASE ADMINISTRATION ASSOCIATE IMPRESSION: WHO Classification: Osteopenia. RECOMMENDATIONS: All patients should ensure an adequate intake of dietary calcium and vitamin D. The NOF recommend adults under the age of 50 need 1000 mg of calcium and 400-800 IU of vitamin D daily. Effective therapy for the prevention and treatment of osteoporosis include bisphosphonates. FOLLOW-UP: People with diagnosed cases of osteoporosis or at high risk for fracture should have regular bone mineral density test. For patients eligible for Medicare, routine testing is allowed once every 2 years. Testing frequency can be increased to one year for patients who have rapidly progressing disease, those who are receiving or discontinuing medical therapy to restore bone mass, or have additional risk factors. Ordered By: TERRANCE GUADALUPE Interpreted By: Ramy Michle, 09/20/2024 2:47 PM [facility] 09/20/2024 2:48 PM DATABASE ADMINISTRATION ASSOCIATE [facility] [address] [place] [address] EXAMINATION: BONE DENSITY/DEXA INDICATIONS: Other specified disorders of bone density and structure, left lower leg COMPARISON: None TECHNIQUE: DEXA bone mineral density evaluation was performed in the AP projection over the lumbar spine and both hips utilizing standard imaging techniques. FINDINGS: The BMD measured at the AP spine L1-L4 is 0.821 g/cm? with a T-score of -2.1. The BMD measured at the left femoral neck is 0.630 g/cm? with a T-score of -2.0. The BMD measured at the left hip is 0.754 g/cm? with a T-score of -1.5. The BMD measured at the right femoral neck is 0.596 g/cm? with a T-score of - 2.3. The BMD measured at the right hip is 0.789 g/cm? with a T-score of -1.3. FRAX 10-year fracture risk: Major Osteoporotic Fracture: 18% Hip Fracture: 8.7% Procedure Note Ramy Michel MD - 09/20/[address] [facility] [address] [place] [address] EXAMINATION: BONE DENSITY/DEXA INDICATIONS: Other specified disorders of bone density and structure, leftlower leg COMPARISON: None TECHNIQUE: DEXA bone mineral density evaluation was performed in the APprojection over the lumbar spine and both hips utilizing standard imagingtechniques. FINDINGS: The BMD measured at the AP spine L1-L4 is 0.821 g/cm? with a T-score of-2.1. The BMD measured at the left femoral neck is 0.630 g/cm? with a T-score of-2.0. The BMD measured at the left hip is 0.754 g/cm? with a T-score of -1.5. The BMD measured at the right femoral neck is 0.596 g/cm? with a T-scoreof -2.3. The BMD measured at the right hip is 0.789 g/cm? with a T-score of -1.3. FRAX 10-year fracture risk: Major Osteoporotic Fracture: 18% Hip Fracture: 8.7% IMPRESSION: WHO Classification: Osteopenia. RECOMMENDATIONS: All patients should ensure an adequate intake of dietary calcium andvitamin D. The NOF recommend adults under the age of 50 need 1000 mg ofcalcium and 400-800 IU of vitamin D daily. Effective therapy for theprevention and treatment of osteoporosis include bisphosphonates. FOLLOW-UP: People with diagnosed cases of osteoporosis or at high risk for fractureshould have regular bone mineral density test. For patients eligible forMedicare, routine testing is allowed once every 2 years. Testing frequencycan be increased to one year for patients who have rapidly progressingdisease, those who are receiving or discontinuing medical therapy torestore bone mass, or have additional risk factors. 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
--- OUTSIDE RECORDS SUMMARY | 2024-12-26 13:32 | XMS_ITS | Patient Health Record ---
Author Organization [facility] rich Address [address] [id number] Care Team Providers Care Engineering Research Manager Name Role Phone Clemencia Arguello [phone] ALLERGIES Allergen (clinical drug ingredient) Drug/Non Drug Allergy documented on EMR Reaction Allergy Type Onset Date Status penicillin rash Drug Allergy Active sulfa (uncoded) rash Allergy Acti ve REASON FOR REFERRAL No Information MEDICATIONS Medication SIG (Take, Route, Frequency, Duration) Notes Start Date End Date Status meloxicam 7.5 mg 1 tab(s) orally once a day Active Tylenol 8 HR Arthritis Pain 650 mg 2 tab(s) orally every 8 hours Active ergocalciferol 50,000 intl units 1 cap(s) orally once a week for 30 day(s) 07/29/2018 Active montelukast 10 mg 1 tab(s) orally once a day Active Co Q-10 100 mg 1 cap(s) orally once a day Active Stool softener Activ e PARoxetine 20 mg 1 tab(s) orally once a day Active melatonin 3 mg 1 tab(s) orally once (at bedtime) Active traMADol Active Centrum Silver Ultra Women's Therapeutic Multiple Vitamins with Minerals 1 tab(s) orally once a day Active SOCIAL HISTORY Tobacco Use: Social History Observation Description Date Details (start date - stop date) Never Smoker NA - NA Sex Assigned At : Social History Observation Description Sex Assigned At Unknown Tobacco Use: Question Answer Notes Smoking Status nonsmoker PROBLEMS Problem Type ICD Code Onset Dates Problem Status W/U Status Risk SNOMED Code Notes Problem Polyarthritis (M13.0) Active confirmed 57034737 Problem Pain in right knee (M25.561) Active confirmed 88379260 Problem Pain in left knee (M25.562) Active confirmed [id number] Problem Low back pain, unspecified back pain laterality, unspecified chronicity, with sciatica presence unspecified (M54.5) Active confirmed 820486641 Problem Primary generalized (osteo)arthritis (M15.0) Active confirmed 884355990 PLAN OF TREATMENT Pending Test Test Name Order Date X ray : Spines, lumbar- outside order X ray : Knee, left 3 views 06/29/2018 X ray : Knee, right 3 views 06/29/2018 Insurance Providers Payer Name Payer Address Payer Phone Subscriber Number Group Number Insured Name Patient Relationship to Insured Coverage Start Date Coverage End Date MEDICARE [address] [address] [place] [address] [id number] Madina Norris Self - patient is the insured 5 [employer] [facility] - NR [id number] [facility] [place] [address] [id number] Madina Norris Self - patient is the insured 6 [employer] [address] [place] [address] [id number] Madina Norris Self - patient is the insured 8 MEDICAL (GENERAL) HISTORY Medical History History ICD Code cataracts blurred vision loss of hearing depression Double vision sinus problems dizziness anxiety swelling of ankles/feet asthma low blood pressure constipation gallstones Surgical History Surgery Date(Month/Year) tonsillectomy appendectomy gallbladder surgery female organs
--- OUTSIDE RECORDS SUMMARY | 2024-12-26 13:32 | XMS_ITS | Encounter Summary ---
Author Organization [facility] Address [address] [place] [address] Care Team Providers Care Physician Support Coordinator Name Role Phone Terrance Gallegos MD Primary Care Provider Reason for Visit * Reason Onset Date Comments FYI 12/26/2024 Encounter Details Date Type Department Care Team (Late st Contact Info) Description 12/26/2024 Telephone [facility] Medical [facility] Family Medicine [facility] [address] [place] [address] Terrance Gallegos MD [address] [facility] [place] [address] FYI Social History Tobacco Use Types Packs/Day Years Used Date Smoking Tobacco: Former Cigarettes 1 3 0 11/01/1957 - 11/01/1960 Passive Smoke Exposure: Past Smokeless Tobacco: Never Alcohol Use Standard Drinks/Week Comments Not Currently [...] on file documented as of this encounter Progress Notes * Roberta Gupta - 12/26/2024 10:40 AM CST [facility] called and said they are sending pt to [facility]. Pt is weak, lethargic, unable to stand up or sit up. 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 [phone] documented as of this encounter Visit Diagnoses Not on filedocumented in this encounter Care Teams Physician Support Coordinator Relationship Specialty Start Date End Date Terrance Gallegos MD [address] [place], [place] [address] [phone] PCP - General FAMILY PRACTICE 07/02/24 documented as of this encounter
--- OUTSIDE RECORDS SUMMARY | 2024-12-26 13:32 | XMS_ITS | Encounter Summary ---
Author Organization [facility] Address [address] [place] [address] Care Team Providers Care Information Technology Security Manager Name Role Phone Yuliana Rosales [facility] Primary Care Provider Terrance Urias MD Primary Care Provider [phone] Encounter Details Date Type Department Care Team ([facility] Contact Info) Description 01/06/2021 Prolifyhart Message Enc [address] [address] [facility] RE: Medication Questions Social History Tobacco Use Types Packs/Day Years [...] have Coronavirus / COVID-19? 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 [address] documented as of this encounter Visit Diagnoses Not on filedocumented in this encounter Care Teams Information Technology Security Manager Relationship Specialty Start Date End Date [facility] PCP - General Nurse Practitioner Family 08/17/18 4 Terrance Gallegos MD [facility] [place] [address] PCP - General FAMILY PRACTICE 07/02/24 documented as of this encounter
--- OUTSIDE RECORDS SUMMARY | 2024-12-26 13:32 | XMS_ITS | Encounter Summary ---
Author Organization [facility] Address [address] [place] [address] Care Team Providers Care Vault Clerk Name Role Phone Yuliana Rosales [facility] Primary Care Provider Terrance Urias MD Primary Care Provider [phone] Encounter Details Date Type Department Care Team ([facility] Contact Info) Description 01/03/2021 Centrlhart Message Enc [address] [address] Yuliana Rosales [facility] RE: bone density Social History Tobacco Use [...] have Coronavirus / COVID-19? 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 [address] documented as of this encounter Visit Diagnoses Not on filedocumented in this encounter Care Teams Vault Clerk Relationship Specialty Start Date End Date [facility]ul[facility] PCP - General Nurse Practitioner Family 08/17/18 4 Terrance Gallegos MD [facility] [place] [address] PCP - General FAMILY PRACTICE 07/02/24 documented as of this encounter
--- NOTE | 2024-12-26 15:09 | ECG_ITS ---
Test Date: 2024-12-26 15:16:57 Measurements Intervals [place] Rate: 71 P: 45 AK: 186 QRS: 42 QRSD: 72 T: 46 QT: 363 QTc: 395 Interpretive Statements SINUS RHYTHM BORDERLINE ST-T WAVE ABNORMALITY- ANTEROLAT/INF LEADS BASELINE ARTIFACT- I, II, III, AVR, AVF, V1-V6 BORDERLINE ECG Compared to ECG 08/18/2024 17:51:11 Sinus bradycardia no longer present Electronically Signed On 12-26-2024 15:33:37 INDUSTRIAL SAFETY ENGINEER by Mariano Wilson D.O.
[2024-12-26 15:36] LABS: Basophils Percent Auto 0.2 % (0.2-1.2); Hematocrit 44.1 % (37.0-47.0); Hemoglobin 14.1 g/dL (12.0-15.0); Immature Granulocyte Absolute 0.02 K/mm3 (0.00-0.031); Immature Granulocyte Percent A 0.4 % (0-0.5); Immature Platelet Fraction Pct 1.9 % (0.9-11.2); Lymphocytes Absolute Auto 0.41 K/mm3 (0.9-3.2); Lymphocytes Percent Auto 7.9 % (18.3-44.2); Mean Corpuscular Hemoglobin 27.2 pg (26-34); Mean Platelet Volume 9.7 fl (7.4-10.4); Monocytes Absolute Auto 0.9 K/mm3 (0.1-0.6); Monocytes Percent Auto 17.1 % (2.6-8.5); Neutrophils Absolute Auto 3.9 K/mm3 (1.3-6.7); Neutrophils Percent Auto 74.4 % (45.5-73.1); Platelet Count Result 179 k/mm3 (150-375); Red Blood Count 5.19 M/mm3 (4.2-5.4); Red Cell Distribution Width 15.5 % (11.5-14.5); White Blood Count 5.2 K/mm3 (4.5-10.0)
[2024-12-26 15:43] LABS: Alanine Aminotransferase 17 U/L (6-35); Albumin Level 4.5 g/dL (3.5-5.1); Alkaline Phosphatase 75 U/L (38-126); Anion Gap 9 mmol/L (4-12); Aspartate Amino Transferase 25 U/L (14-36); Bilirubin,Total 0.5 mg/dL (0.2-1.3); Blood Urea Nitrogen 12 mg/dL (7-17); Calcium 9.4 mg/dL (8.4-10.2); Carbon Dioxide 27 mmol/L (22-30); Chloride 99 mmol/L (98-107); Estimated Glomerular Filt Rate > 60; Glucose 101 mg/dL (65-110); Potassium 4.1 mmol/L (3.4-5.0); Sodium 135 mmol/L (137-145)
--- NOTE | 2024-12-26 15:43 | ED_ITS ---
HPI - Weakness General Chief complaint: Weakness Stated complaint: weakness Time Seen by Provider: 12/26/24 15:41 Source: EMS Mode of arrival: EMS Limitations: dementia History of Present Illness HPI Narrative: 84 YEARS OLD WHITE FEMALE CAME FROM [facility], HISTORY OF [facility]HE[facility]'S STAGE 6, BECAUSE LOOKS GIRARD SHE IN COLOR AND WEAK ALL OVER. PATIENT IS DNR. Related Data Home Medications ?Medication ?Instructions ?Recorded ?Confirmed ?Last Taken ?Type albuterol sulfate 90 mcg/actuation 2 puff inhalation QID PRN 04/22/21 08/01/21 08/12/21 History aerosol inhaler (ProAir HFA) shortness of breath cetirizine 10 mg tablet 10 mg PO HS PRN runny nose 04/22/21 08/01/21 08/12/21 History donepezil 10 mg tablet 10 mg PO HS 04/22/21 08/01/21 08/12/21 History quetiapine 25 mg tablet 50 mg PO HS 04/22/21 08/01/21 08/12/21 History docusate sodium 100 mg capsule 100 mg PO DAILY 04/23/21 08/01/21 08/12/21 History gkmdxumq-qsvrwql-uqez-lutein tablet 1 tablet PO HS 04/23/21 08/01/21 08/12/21 History cholecalciferol (vitamin D3) 25 25 mcg PO HS 08/01/21 08/01/21 08/12/21 History mcg (1,000 unit) capsule (Vitamin D3) escitalopram oxalate 5 mg tablet 5 mg PO QAM 08/01/21 08/01/21 08/12/21 History melatonin 10 mg tablet 10 mg PO HS 08/01/21 08/01/21 08/12/21 History multivitamin with minerals 1 tablet PO DAILY 08/01/21 08/01/21 08/12/21 History (Hair,Skin and Nails tablet) Allergies Allergy/AdvReac Type Severity Reaction Status Date / Time Penicillins Allergy Mild Rash Verified 06/20/24 15:39 Sulfa (Sulfonamide Allergy Mild Rash Verified 06/20/24 15:39 Antibiotics) Review of Systems 2 Review of Systems: ROS unobtainable: Yes unobtainable due to mental status PMFSH Past Medical History Medical History Asthma Dementia Surgical History Surgical History S/P gastric surgery . Exploratory laparotomy 2. Repair of perforated gastric ulcer with omental Jaison patch 3. Biopsy of gastric ulcer History of hysterectomy History of appendectomy History of cholecystectomy Family History Family History Unknown No pertinent family history Social History Social History Social History: The patient lives with her daughter. She was to a little and is now . She has 4 children. Her daughter is a durable power associate attorney for healthcare. The patient is a full code. 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 She does not use any alcohol marijuana or illicit drugs. Smoking status: Never smoker Alcohol intake: never Substance use: never Living arrangements: with family Additional living arrangements comments: Lives at home with daughter Gender identity (if verbalized by the patient): Female Sexual Orientation (if Verbalized by the Patient): Straight or Heterosexual Spiritual care concerns: No Exam 2 Narrative: GENERAL APPEARANCE: WELL-DEVELOPED, WELL-NOURISHED SKIN: PALE SKIN HEAD: NORMOCEPHALIC, NONTRAUMATIC EYES: CLEAR CONJUNCTIVA ENT: OROPHARYNX NORMAL, EARS NORMAL, NOSE NORMAL NECK: SUPPLE, NONTENDER CHEST AND RESPIRATORY: AIRWAY PATENT, NO RESPIRATORY DISTRESS, NO ACCESSORY MUSCLE USE HEART: REGULAR RATE/RHYTHM ABDOMEN: SOFT, NONTENDER, NO ORGANOMEGALY, QUIET BOWEL SOUNDS VASCULAR: NORMAL PERIPHERAL PULSES, NORMAL CAPILLARY REFILL. MUSCULOSKELETAL: NORMAL RANGE OF MOTION, NONTENDER BACK NEUROLOGIC: ALERT, DISORIENTED TIME FOR Course Vital Signs Vital signs: Vital Signs Temperature 36.5 C 12/26/24 11:58 Pulse Rate 80 12/26/24 11:58 Respiratory Rate 18 12/26/24 11:58 Blood Pressure 105/52 L 12/26/24 11:58 Pulse Oximetry 100 12/26/24 11:58 Oxygen Delivery Room Air 12/26/24 11:58 Temperature 37.2 C 12/26/24 14:08 Pulse Rate 63 12/26/24 18:16 Respiratory Rate 19 12/26/24 18:16 Blood Pressure 108/52 L 12/26/24 18:16 Pulse Oximetry 97 12/26/24 16:01 Oxygen Delivery Room Air 12/26/24 11:58 MDM - Weakness MDM Narrative Medical decision making narrative: PATIENT CAME WITH GENERAL WEAKNESS VITAL SIGNS SHOWING BLOOD PRESSURE 105/52 OTHERWISE WITHIN NORMAL LIMIT PHYSICAL EXAMINATION SHOWING DEBILITATING PATIENT, DISORIENTED X4 DIFFERENTIAL DIAGNOSIS INCLUDE MAJOR DEPRESSION, DEHYDRATION, ELECTROLYTE IMBALANCE, URINARY TRACT INFECTION, PNEUMONIA, VIRAL INFECTION BLOOD WORKUP TODAY INCLUDES CBC, CMP, SHOWED INSIGNIFICANT ABNORMALITY URINALYSIS SHOWED NO EVIDENCE OF INFECTION PATIENT TESTED POSITIVE FOR FLU CHEST X-RAY SHOWED NO ACUTE ABNORMALITY DIAGNOSIS INFLUENZA A, DISCHARGE BACK TO MEMORY CARE UNIT, TREATMENT TAMIFLU Differential Diagnosis Differential diagnosis: Likely other ( ABOVE) Medical Records Attestation: I reviewed the patient's medical records. Lab Data Attestation: I reviewed the patient's lab results. 12/26/24 15:21 12/26/24 15:21 Labs: Lab Results 12/26/24 12/26/24 12/26/24 Range/Units 15:21 15:35 15:48 WBC 5.2 (4.5-10.0) K/mm3 RBC 5.19 (4.2-5.4) M/mm3 Hgb 14.1 (12.0-15.0) g/dL Hct 44.1 (37.0-47.0) % MCV 85.0 (80-100) fl MCH 27.2 (26-34) pg MCHC 32.0 (32-36) g/dl RDW 15.5 H (11.5-14.5) % Plt Count 179 (150-375) k/mm3 MPV 9.7 (7.4-10.4) fl Immature Gran % (Auto) 0.4 (0-0.5) % Neut % (Auto) 74.4 H (45.5-73.1) % Lymph % (Auto) 7.9 L (18.3-44.2) % Waldo % (Auto) 17.1 H (2.6-8.5) % Eos % (Auto) 0.0 (0-4.4) % Baso % (Auto) 0.2 (0.2-1.2) % Lymph # (Auto) 0.41 L (0.9-3.2) K/mm3 Waldo # (Auto) 0.9 H (0.1-0.6) K/mm3 Eos # (Auto) 0.0 (0-0.3) K/mm3 Baso # (Auto) 0.0 (0.0-0.1) K/mm3 Abs Immat Gran (auto) 0.02 (0.00-0.031) K/mm3 Absolute Neuts (auto) 3.9 (1.3-6.7) K/mm3 Absolute Nucleated RBC 0.000 (0.0-0.012) K/mm3 Band Neutrophils % Not Reportable Nucleated RBC % 0.0 (0.0-0.2) % Platelet Estimate Adequate (Adequate) % Immature Plt Fraction 1.9 (0.9-11.2) % Schistocytes None seen Sodium 135 L (137-145) mmol/L Potassium 4.1 (3.4-5.0) mmol/L Chloride 99 (98-107) mmol/L Carbon Dioxide 27 (22-30) mmol/L Anion Gap 9 (4-12) mmol/L BUN 12 (7-17) mg/dL Creatinine 0.77 (0.7-1.0) mg/dL Estim Creat Clear Calc Not Reportable Estimated GFR > 60 (59 - ) Glucose 101 (65-110) mg/dL Calcium 9.4 (8.4-10.2) mg/dL Total Bilirubin 0.5 (0.2-1.3) mg/dL AST 25 (14-36) U/L ALT 17 (6-35) U/L Alkaline Phosphatase 75 (38-126) U/L Total Protein 8.0 (6.3-8.2) g/dL Albumin 4.5 (3.5-5.1) g/dL Urine Color Yellow (Yellow) Urine Appearance Cloudy H (Clear) Urine pH 5.5 (5.0-9.0) Ur Specific [place] >= 1.030 (1.001-1.035) Urine Protein 2+ H (Negative) mg/dL Urine Glucose (UA) Negative (Negative) mg/dL Urine Ketones Trace H (Negative) mg/dL Ur Blood (Man) 2+ H (Negative) Urine Nitrate Negative (Negative) Urine Bilirubin Negative (Negative) Urine Urobilinogen 0.2 (<2.0) mg/dL Leukocyte Esterase Rfl Negative (Negative) DUANE/UL Urine RBC 0-2 (0-2) /hpf Urine WBC 0-3 (0-3) /hpf Ur Squamous Epith Cells Moderate H (Few) /hpf Urine Bacteria Trace (None) /hpf Influenza A (RT-PCR) Positive A (Negative) Influenza B (RT-PCR) Negative (Negative) RSV (RT-PCR) Negative (Negative) SARS-CoV-2 RNA (RT-PCR) Negative (Negative) Imaging Data Radiologist's impression: Impressions Chest X-Ray 12/26/24 15:42 IMPRESSION: No focal infiltrate or effusion. ECG Data EKG #1: Attestation: I personally reviewed and interpreted this ECG as follows: ECG completion date: 12/26/24 Interpretation: NORMAL SINUS RHYTHM AT 71 BEATS PER MINUTE, ST T-WAVE ABNORMALITY, BASELINE ARTIFACT, BORDERLINE EKG, COMPARED TO EKG ON AUGUST 18, 2024 SINUS BRADYCARDIA NO LONGER PRESENT Critical Care Time Critical Care Time Critical Care Time: No Discharge Plan Discharge Clinical Impression: Influenza A Patient Disposition: NH Detention/Asst Living Condition: Stable Instructions: Antibiotic Form Additional Instructions: RETURN IF SYMPTOMS ARE WORSENING , CALL YOUR FAMILY PHYSICIAN FOR APPOINTMENT, TAKE TYLENOL NEEDED FOR ACHES AND PAIN, CONTINUE HOME MEDICATIONS., TAKE TYLENOL NEEDED Patient Language: Somali Prescriptions: New oseltamivir [Tamiflu] 75 mg capsule 75 mg PO BID Qty: 10 0RF No Action quetiapine 25 mg tablet 50 mg PO HS cetirizine 10 mg tablet 10 mg PO HS PRN (Reason: runny nose) donepezil 10 mg tablet 10 mg PO HS albuterol sulfate [ProAir HFA] 90 mcg/actuation HFA aerosol inhaler 2 puff INHALATION QID PRN (Reason: shortness of breath) docusate sodium 100 mg Capsule 100 mg PO DAILY eqibidfo-duysgeu-jpss-lutein Tablet 1 tablet PO HS multivitamin with minerals [Hair,Skin and Nails] Tablet 1 tablet PO DAILY cholecalciferol (vitamin D3) [Vitamin D3] 25 mcg (1,000 unit) Capsule 25 mcg PO HS escitalopram oxalate 5 mg tablet 5 mg PO QAM melatonin 10 mg Tablet 10 mg PO HS pantoprazole 40 mg tablet,delayed release (DR/EC) 40 mg PO DAILY Qty: 30 11RF Follow-up/Referrals: UNKNOWN,DOCTOR [Primary Care Provider] -
[2024-12-26 15:55] LABS: Platelet Estimate Adequate (Adequate); Schistocytes None Seen
[2024-12-26 15:56] LABS: Appearance Urine Cloudy (Clear); Color Urine Yellow (Yellow)
[2024-12-26 15:57] LABS: Glucose Urine UA Negative (Negative); Protein Urine 2+ mg/dL (Negative); Specific Grav Ur >= 1.030 (1.001-1.035); pH Urine 5.5 (5.0-9.0)
[2024-12-26 15:58] LABS: Bilirubin Urine Negative (Negative); Blood Urine 2+ (Negative); Ketones Urine Trace mg/dL (Negative); Nitrate Urine Negative (Negative); Urobilinogen Urine 0.2 mg/dL (<2.0)
[2024-12-26 15:59] LABS: Add Urine Microscopic? YES; Leukocyte Esterase Ur Negative LEU/UL (Negative); RBC Urine 0-2 /hpf (0-2); WBC Urine 0-3 /hpf (0-3)
[2024-12-26 16:00] LABS: Bacteria Urine Trace /hpf; Squamous Epithelial Cell Urine Moderate /hpf (Few)
[2024-12-26 16:33] LABS: Influenza A QL RT-PCR Positive (Negative); Influenza B QL RT-PCR Negative (Negative); RSV RNA, RT-PCR Negative (Negative); SARS-CoV-2 RNA PCR Negative (Negative)
--- OUTSIDE RECORDS SUMMARY | 2024-12-26 18:15 | XMS_ITS | Clinical Summary ---
Author Organization [facility] Address Critical access hospital[address] [place] [address] Care Team Providers Care Metal Spinner Name Role Phone Terrance Guadalupe MD Primary Care Provider [phone] Allergies Active Allergy Reactions Criticality Noted Date [...] MCG/ACT inhalerIndication s:Mild intermittent asthma without complication ([facility]/HCC) Inhale 2 puffs into the lungs every [...] onset Alzheimer's disea se without behavioral disturbance ([facility]) 07/10/2020 Osteoarthritis of glenohumeral joint, right 12/03 Right shoulder pain, unspecified chronicity 12/03 Rotator cuff arthropathy, right 12/29/2019 Vitamin D deficiency 03/22/2019 Anxiety and depression 08/16/2018 Asthma ([facility]/HCC) 08/16/2018 Constipation 08/16/2018 Hyperlipidemia 08/16/2018 Memory change 08/16/2018 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 Resolved Problems Problem Noted Date Diagnosed Date Resolved Date Screening for malignant neoplasm of breast 08/16/2018 07/12/2020 Encounters Date Type Department Care Team Description 12/26/2024 Telephone [facility] Medical Group Family Medicine - [address] [address] Terrance Guadalupe MD FYI 11/30/2024 Scan HEALTH INFO SRVCS Scanned, Doc Med Group 11/26/2024 Scan [facility] HEALTH INFO SRVCS Scanned, Doc Med Group 10/29/2024 Scan MG HEALTH INFO SRVCS Scanned, Doc Med Group 10/24/2024 Scan [facility] HEALTH INFO SRVCS Scanned, Doc Med Group 10/20/2024 Scan [facility] HEALTH INFO SRVCS Scanned, Doc Med Group 09/27/2024 Orders Only [address] [address] Terrance Guadalupe MD 09/26/2024 Scan [facility] HEALTH INFO SRVCS Scanned, Doc Med Group 09/25/2024 Scan [facility] HEALTH INFO SRVCS Scanned, Doc Med Group 09/25/2024 Orders Only [address] [address] Terrance Guadalupe MD from Last 3 Months Immunizations Name Administration Dates Next Due Dtap (Generic) 04/25/2014 Fluzone High Dose - >Age 65 (Prefilled Syringe) 08/08/2021,09/28/2020,10/06/2019 Influenza (Generic) 07/30/2018,07/28/2018 Influenza Adult (Generic) 08/01/2023,08/05/2015 MODERNA COVID-19 (12+) MRNA, LNP-S, PF, 100 MCG/ 0.5 ML DOSE 01/09/2021,12/12/2020 Pneumococcal (Prevnar 20) 03/05/2023 Tdap (Generic) 04/25/2014 Zoster (Zostavax) 01488 Unt/0.65Ml 08/25/2007 Family History Medical History Relation [...] Comments Blood Pressure 107/60 09/08/2024 1:23 PM CATTLE FEEDER Pulse 64 09/08/2024 1:23 PM CATTLE FEEDER Temperature 36.4 C (97.5 F) 09/08/2024 1:23 PM CATTLE FEEDER Respiratory Rate 14 09/08/2024 1:23 PM CATTLE FEEDER Oxygen Saturation 96% 09/08/2024 1:23 PM CATTLE FEEDER Inhaled Oxygen Concentration - - Weight 68 kg (150 lb) 09/08/2024 1:23 PM CATTLE FEEDER Height 160 cm (5' 3 ) 09/08/2024 1:23 PM CATTLE FEEDER Body Mass Index 26.57 09/08/2024 1:23 PM CATTLE FEEDER Plan of Treatment Upcoming Encounters Date Type Department Care Team (Late st Contact Info) Description 02/06/2025 3:00 PM CDT Office Visit [facility] Medical Group Family Medicine - [place] [address] [place] [address] Terrance Guadalupe MD [address] [facility] [place] [address] Health Maintenance Due Date Last [...] 08/08/2021, 09/28/2020, Additional history exists PHQ-2 (Physician Mentasta) 11/01/2024 09/08/2024 Pneumococcal Vaccine: 65+ Years Completed [...] BONE DENSITY/DEXA Routine 09/20/2024 2:3 0 PM CATTLE FEEDER Osteopenia of left lower leg from Last 3 Months or Most Recently Relevant to Health Maintenance Results * BONE DENSITY/DEXA (09/20/2024 2:30 PM CATTLE FEEDER) Anatomical Region Laterality Modality Bone Mammography 09/20/2024 2:47 PM CATTLE FEEDER Impressions 09/20/2024 2:48 PM CATTLE FEEDER IMPRESSION: WHO Classification: Osteopenia. RECOMMENDATIONS: All patients [...] Interpreted By: Ramy Michel, 09/20/2024 2:47 PM [facility] 09/20/2024 2:48 PM CATTLE FEEDER [facility] [place] [address] EXAMINATION: BONE DENSITY/DEXA INDICATIONS: Other specified disorders [...] Procedure Note Ramy Michel MD - 09/20/2024 [facility] [place] [address] EXAMINATION: BONE DENSITY/DEXA INDICATIONS: Other specified disorders [...] Recently Relevant to Health Maintenance Insurance MEDICARE [facility] Advance Directives Documents on File Type Date Recorded Patient Data Analyst Expl anation Advance Directives and Jolynn g Will 11/04/2022 2:12 PM POLST Care Teams Metal Spinner Relationship Specialty Start Date End Date Terrance Guadalupe MD [address] [place] [address] PCP - General FAMILY PRACTICE 07/02/24
--- OUTSIDE RECORDS SUMMARY | 2024-12-26 18:15 | XMS_ITS | Encounter Summary ---
Author Organization [facility] Address [address] [place] [address] Care Team Providers Care Lmft Name Role Phone Yuliana Rosales [facility] Primary Care Provider Terrance Urias MD Primary Care Provider Encounter Details Date Type Department Care Team (Late Contact Info) Description 06/20/2021 Fits.mehart Message Enc [address] [address] Yuliana Rosales [facility] RE: bone density Social History Tobacco [...] Description 02/06/2025 3:00 PM CDT [facility] [address] [place] [address] Terrance Gallegos MD [facility] [place] [address] documented as of this encounter Visit Diagnoses Not on filedocumented in this encounter Care Teams Lmft Relationship Specialty Start Date End Date [facility] PCP - General Nurse Practitioner Family 08/17/18 4 Terrance Gallegos MD [facility] [place] [address] PCP - General FAMILY PRACTICE 07/02/24 documented as of this encounter
--- OUTSIDE RECORDS SUMMARY | 2024-12-26 18:15 | XMS_ITS | Encounter Summary ---
Author Organization [facility] Address [address] [place] [address] Care Team Providers Care Supervisor Sewing Room Name Role Phone Terrance Gallegos MD Primary Care Provider Reason for Visit * Reason Onset Date Comments FYI 12/26/2024 Encounter Details Date Type Department Care Team (Late st Contact Info) Description 12/26/2024 Telephone [facility] Medical [facility] Family Medicine [facility] [address] [place] [address] Terrance Gallegos MD [address] [facility] [place] [address] FYI Social History Tobacco Use [...] Roberta Gupta - 12/26/2024 10:40 AM CST [facility] called and said they are sending pt to [facility]. Pt is weak, lethargic, unable to stand up or sit up. 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 [phone] documented as of this encounter Visit Diagnoses Not on filedocumented in this encounter Care Teams Supervisor Sewing Room Relationship Specialty Start Date End Date Terrance Gallegos MD [address] [place], [place] [address] [place] [phone] PCP - General FAMILY PRACTICE 07/02/24 documented as of this encounter
--- OUTSIDE RECORDS SUMMARY | 2024-12-26 18:15 | XMS_ITS | Encounter Summary ---
Author Organization [facility] Address [address] [place] [address] Care Team Providers Care Anesthetic Assistant Name Role Phone Yuliana Rosales [facility] Primary Care Provider Terrance Urias MD Primary Care Provider [phone] Encounter Details Date Type Department Care Team ([facility] Contact Info) Description 01/06/2021 true[x] Mediahart Message Enc [address] [address] Yuliana Rosales [facility] RE: Medication Questions Social History Tobacco Use [...] COVID-19? 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 [address] documented as of this encounter Visit Diagnoses Not on filedocumented in this encounter Care Teams Anesthetic Assistant Relationship Specialty Start Date End Date [facility] PCP - General Nurse Practitioner Family 08/17/18 4 Terrance Gallegos MD [facility] [place] [address] PCP - General FAMILY PRACTICE 07/02/24 documented as of this encounter
--- OUTSIDE RECORDS SUMMARY | 2024-12-26 18:15 | XMS_ITS | Encounter Summary ---
Author Organization [facility] Address [address] [place] [address] Care Team Providers Care Bdr Name Role Phone LeidysukhdeepYuliana [facility] Primary Care Provider Terrance Urias MD Primary Care Provider [phone] Encounter Details Date Type Department Care Team (Late Contact Info) Description 04/28/2023 MyChart Message Enc [facility] [address] [place] [id number] [facility], [facility] Provider Air Quality Message Social History Tobacco [...] Description 02/06/2025 3:00 PM CDT Office Visit [facility] [address] [address] Terrance Gallegos MD [address] [place] [address] [address] documented as of this encounter Visit Diagnoses Not on filedocumented in this encounter Care Teams Bdr Relationship Specialty Start Date End Date [facility] - General Nurse Practitioner Family 08/17/18 4 Terrance Gallegos MD [address] [facility] [place] [id number] PCP - General FAMILY PRACTICE 07/02/24 documented as of this encounter
--- OUTSIDE RECORDS SUMMARY | 2024-12-26 18:15 | XMS_ITS | Encounter Summary ---
Author Organization [facility] Address [address] [place] [id number] Care Team Providers Care Tanyard Worker Name Role Phone Yuliana Rosales [facility] Primary Care Provider Terrance Urias MD Primary Care Provider [phone] Encounter Details Date Type Department Care Team ([facility] Contact Info) Description 01/03/2021 [employer] Message Enc [address] [address] Yuliana Rosales [facility] RE: bone density Social History Tobacco [...] COVID-19? 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 [address] documented as of this encounter Visit Diagnoses Not on filedocumented in this encounter Care Teams Tanyard Worker Relationship Specialty Start Date End Date [facility] - General Nurse Practitioner Family 08/17/18 4 Terrance Gallegos MD [facility] [place] [address] PCP - General FAMILY PRACTICE 07/02/24 documented as of this encounter
== END 2024-12-26 20:07 ==
PROVIDERS: Emergency Provider Emergency Medicine
DX: J10.1 Influenza due to other identified influenza virus with other respiratory manifestations (principal); Z20.822 Contact with and (suspected) exposure to COVID-19; G30.9 Alzheimer's disease, unspecified; F02.C0 Dementia in other diseases classified elsewhere, severe, without behavioral disturbance, psychotic disturbance, mood disturbance, and anxiety; Z90.710 Acquired absence of both cervix and uterus; Z90.49 Acquired absence of other specified parts of digestive tract; R94.31 Abnormal electrocardiogram [ECG] [EKG]
CPT/HCPCS: 36415; 71045; 80053; 81001; 85025; 85055; 87637; 93005; 99283